=== PATIENT | male | born 2000 | race Hispanic/Latino ===

== ENCOUNTER 2019-12-04 17:26 | Emergency (ER) | payer OTHER ==
[~2019-12-04] VITALS: Ht 185.4 cm; Wt 91.0 kg
[2019-12-04 17:27] VITALS: BP 167/86
[2019-12-04] MEDS ORDERED: IBUP-1022 PO (17:33)
[2019-12-04] MEDS ORDERED: MAGIC MOUTHWASH SUSPENSION BTL SS STA (18:34)
[2019-12-04] MEDS ORDERED: IBUPROFEN 600 MG TAB PO ONE (18:45)
[2019-12-04] MEDS ORDERED: AMOXICILLIN 500 MG CAP PO ONE (18:45)
[2019-12-04] MEDS ORDERED: MAGICMW SSP (18:59)
[2019-12-04] MEDS ORDERED: AMOX500C PO (18:59)
== END 2019-12-04 19:06 | disposition home or self-care (01) ==
LOC: M ED 17:26
DX: B08.8 Other specified viral infections characterized by skin and mucous membrane lesions (principal); J02.0 Streptococcal pharyngitis; R05 Cough; Z72.0 Tobacco use

== ENCOUNTER 2019-12-06 09:46 | Inpatient (IN) | payer OTHER ==
[~2019-12-06] VITALS: Ht 185.4 cm; Wt 81.5 kg
[2019-12-06] VITALS (7 sets, daily range): BP systolic 141–144; BP diastolic 83–87; O2SAT 91–96
[~2019-12-06 09:46] MED LIST: AMOX500C PO; IBUP-1022 PO; MAGICMW SSP
[2019-12-06] MEDS ORDERED: ACETAMINOPHEN 325 MG TAB PO ONE (10:00)
[2019-12-06] MEDS ORDERED: dexameTHASONE 4 MG/ML 1ML VIAL (J1100) IV ONE (10:30)
[2019-12-06] MEDS ORDERED: NS 1,000 ML IV ONE (10:30)
[2019-12-06] MEDS ORDERED: ACETAMINOPHEN SUSP DYE FREE 160 MG/5 ML UDC PO ONE (10:30)
[2019-12-06 11:07] LABS: BASO # 0.1 10^3/uL (0.0-0.2); BASO % 0.3 % (0.0-1.0); EOS # 0.1 10^3/uL (0.0-0.5); EOS % 0.6 % (0.0-3.0); HEMATOCRIT 45.4 % (42.0-52.0); LYMPH # 1.1 10^3/uL (1.5-5.0); LYMPH % 7.9 % (24.0-44.0); MEAN CORPUSCULAR HEMOGLOBIN 27.7 pg (27.0-33.0); MEAN CORPUSCULAR VOLUME 83.9 fl (80.0-96.0); MONO # 1.7 10^3/uL (0.0-0.8); MONO % 12.1 % (0.0-5.0); NEUTROPHILS # 11.3 10^3/uL (1.5-8.5); NEUTROPHILS % 78.5 % (36.0-66.0); PLATELET COUNT, AUTOMATED 304 10^3/uL (150-450); RED BLOOD COUNT 5.41 10^6/uL (4.30-6.10); WHITE BLOOD COUNT 14.3 10^3/uL (4.0-10.0)
[2019-12-06 11:16] LABS: INFLUENZA A AMPLIFICATION NEGATIVE (NEGATIVE); INFLUENZA B AMPLIFICATION NEGATIVE (NEGATIVE)
--- NOTE | 2019-12-06 11:34 | REP ---
Portable chest x-ray: Single view. History: Cough. Findings: EKG electrodes and oxygen delivery tubing are seen. The lungs are well inflated and clear. The pleural angles are sharp. Heart size is normal. Pulmonary vasculature is not increased. No significant bony abnormality. Impression: No acute disease. Electronically Signed by Vlad Dumas MD 12/06/2019 11:25 A
[2019-12-06 11:49] LABS: INR 1.11
[2019-12-06 11:50] LABS: PARTIAL THROMBOPLASTIN TIME 37.8 SECONDS (25.0-38.4)
[2019-12-06 12:01] LABS: ERYTHROCYTE SEDIMENTATION RATE 58 mm/hr (0-15)
[2019-12-06] MEDS ORDERED: ISOVUE-370 76% 100ML VIAL (Q9967) As Ordered ONE (12:10)
[2019-12-06 12:15] LABS: MONO REFLEX EBV COMP NEGATIVE (NEGATIVE)
[2019-12-06 12:19] LABS: ALBUMIN 3.9 GM/DL (3.2-5.2); ALT/SGPT 27 U/L (12-78); BILIRUBIN,DIRECT 0.3 MG/DL (0.0-0.2); BILIRUBIN,TOTAL 0.7 MG/DL (0.2-1.0); TOTAL PROTEIN 8.2 GM/DL (6.4-8.2)
[2019-12-06 12:31] LABS: CK-MB VALUE MASS < 1.0 NG/ML (<3.6); CPK CREATINE PHOSPHOKINASE 217 U/L (39-308); MB/CK RELATIVE INDEX 0.46 (< OR =4); TROPONIN I < 0.02 NG/ML (< 0.10)
[2019-12-06] MEDS ORDERED: DOXYCYCLINE HYCLATE 100 MG in D5W MINI-BAG PLUS 100 ML IV ONE (13:00)
--- NOTE | 2019-12-06 13:01 | REP ---
INDICATION: Neck swelling, difficulty swallowing. PROCEDURE: CT neck with contrast COMPARISON STUDIES: No prior similar studies FINDINGS: Scattered cervical chain lymph nodes are seen without evidence of lymphadenopathy. Oropharynx, nasopharynx, hypopharynx and larynx appear unremarkable. No evidence of abscess or focal infection. The thyroid gland appears unremarkable. Paranasal sinuses are clear. Lung apices are clear. The vascular structures appear unremarkable. Cervical spinal alignment within normal limits without evidence of canal or foraminal stenosis. IMPRESSION: Unremarkable CT neck with contrast. Electronically Signed by Khari Winslow MD 12/06/2019 12:53 P
[2019-12-06 13:36] LABS: AMPHETAMINES LEVEL URINE NEGATIVE (NEGATIVE); BARBITURATES URINE NEGATIVE (NEGATIVE); BENZODIAZEPINES URINE NEGATIVE (NEGATIVE); CANNABINOIDS URINE NEGATIVE (NEGATIVE); COCAINE METABOLITE URINE NEGATIVE (NEGATIVE); METHADONE URINE NEGATIVE (NEGATIVE); OPIATES URINE NEGATIVE (NEGATIVE); PHENCYCLIDINE URINE NEGATIVE (NEGATIVE)
[2019-12-06] MEDS ORDERED: AMOX500C PO (13:43)
[2019-12-06] MEDS ORDERED: MAGICMW SSP (13:43)
--- NOTE | 2019-12-06 14:04 | REP ---
CT CHEST WITHOUT CONTRAST: HISTORY: Shortness of breath. History of vaping exposure with THC. No comparison CT study. Comparison is made with today's chest x-ray. CT FINDINGS: There is a pattern of mild to moderate bronchial wall thickening, consistent with bronchitis. There are subtle tree-in-bud densities in the left lower lobe, consistent with early inflammatory changes. There are similar densities in the anterior segment of the left upper lobe and the superior segment of the right lower lobe. No evidence of ground-glass opacities are seen. No coarse fibrotic changes or consolidated areas are seen. There is no evidence of pleural or pericardial effusion. No adrenal lesion is observed. Contrast opacification is seen in the kidneys bilaterally from previously performed CT study of the neck, which was done with IV contrast. No bony destructive lesion is seen. IMPRESSION: Bronchial wall thickening diffusely. Scattered areas of mild tree-in-bud type nodular lung changes, consistent with early inflammatory disease. There is no evidence of ground-glass opacity or areas of consolidation to suggest the usually described features of vaping associated lung injury. Findings may reflect bronchitis. Electronically Signed by Vlad Dumas MD 12/06/2019 04:41 P
[2019-12-06] MEDS ORDERED: PIPERACILLIN/TAZOBACTAM SOD 3.375 GM in D5W MINI-BAG PLUS 50 ML IV ONE (14:30)
[2019-12-06] MEDS ORDERED: VANCOMYCIN HCL 1,000 MG, VIAL MATE ADAPTER 1 EACH in D5W 250 ML IV ONE ×2 (14:30→16:00)
[2019-12-06 14:32] LABS: CHLAMYDIA DNA AMPLIFICATION NEGATIVE (NEGATIVE); GC DNA AMPLIFICATION NEGATIVE (NEGATIVE)
--- NOTE | 2019-12-06 14:57 | HPEPDOC ---
General Date of Admission Date of Service: Dec 06, 2019 Attending Physician: KEENAN DUDLEY MD Chief Complaint mouth soars, rash, productive cough Source: Patient Exam Limitations: No limitations History of Present Illness 19-year-old male no significant PMHx admitted presents with mouth soars, rash, productive cough. States symptoms started 1 week ago with productive cough with yellow sputum, associated with subjective fever and chills and shortness of breath. Denies chest pain/pressure, n/v/d, abdominal pain, urinary complaints, joint pain, headaches, vision changes. Noted increasing pain on swallowing Wednesday followed by blisters forming in the back of his throat and on his lips. Came to the ED on Wednesday evening for evaluation. Was found to be strep positive and tx with a dose of Amoxicillin and discharged home. Patient states he did not take anymore of the antibiotic as it was increasingly difficult for him to swal low. Symptoms worsened today, noted conjunctival hemorrhages with worsening of lip/throat blisters. Also with pustular rash forming across his torso and extremities. Presents to the ED with BP 162/85, P93, RR 19, saturating 93% on RA, Tm 102.3. Labs with wbc 14.3, ESR 58, CRP 24, LA 2.2, UA and urine toxicology negative, K 3.3, Na 132, SCr 1.5. CT chest with bronchial wall thickening diffusely, scattered areas of mild tree in bud type nodular lung changes. CT neck negative. Respiratory panel positive for Mycoplasma Pneumonia. Started on IV vanco/zosyn in ED, pancultures, IV steroids. Home Medications Scheduled Amoxicillin (Amoxicillin) 500 Mg Capsule, 500 MG PO TID, (Reported) patient states 4 doses taken out of 30 Ibuprofen (Ibuprofen) 600 Mg Tablet, 600 MG PO TID for pain, (Reported) with food Scheduled PRN Magic Mouthwash (First-Mouthwash Blm) 1 Ea Susp, 10 ML SSP QID PRN for MUCOSITIS, (Reported) (Diphenhydramine/maalox/lidocaine 1:1:1) May compound if kit unavailable/not covered by insurance Allergies Coded Allergies: No Known Allergies (Unverified , 12/04/19) Past Medical History Medical History none Surgical History tonsillectomy, adenoid removal. Family History Significant Family History: No pertinent family hx Social History * Smoker: Denies Alcohol: occationally (beer on weekends) Drugs: denies Recent Travel/Sick Contacts: Reports: Recent travel (drove to [place] over the holidays to be with family) A-FIB/CHADSVASC A-FIB History Current/History of A-Fib/PAF?: No Current PO Anticoag Therapy: No Review of Systems Constitutional: Reports: Weakness, Fatigue Eyes: Reports: Pain, Conjunctivae inflammation, Eyelid inflammation, Redness ENT: Reports: Dysphagia, Sore Throat Skin: Reports: Rash, Lesions, Itching Pulmonary: Reports: Dyspnea, Cough Genitourinary: Reports: Dysuria Physical Examination General Exam: Positive: Mild Distress Eye Exam: Positive: Other Eye Symptoms (conjunctival hemorrhages b/l, yellow discharge both eyes) ENT Exam: Positive: Other ENT (dry blisters noted on lips, erythema to pharynx) Chest Exam: Positive: Diminished Heart Exam: Positive: Rate Normal Skin Exam: Positive: Rash (purpuric rash spotty across torso, upper and lower extremities b/l) Vital Signs Vital Signs Date Time Temp Pulse Resp B/P (MAP) Pulse Ox O2 Delivery O2 Flow Rate FiO2 12/06/19 14:30 93 19 162/85 (110) 93 Nasal Cannula 3.0 12/06/19 12:13 100.4 Laboratory Data Labs 24H Laboratory Tests 2 12/06/19 10:03: Influenza Type A (RT-PCR) NEGATIVE, Influenza Type B (RT-PCR) NEGATIVE, Respiratory Syncytial Virus (RT-PCR NEGATIVE 12/06/19 10:37: Immature Granulocyte % (Auto) 0.6, Neutrophils (%) (Auto) 78.5H, Lymphocytes (%) (Auto) 7.9L, Monocytes (%) (Auto) 12.1H, Eosinophils (%) (Auto) 0.6, Basophils ( %) (Auto) 0.3, Neutrophils # (Auto) 11.3H, Lymphocytes # (Auto) 1.1L, Monocytes # (Auto) 1.7H, Eosinophils # (Auto) 0.1, Basophils # (Auto) 0.1, Nucleated Red Blood Cells % (auto) 0.0, Erythrocyte Sedimentation Rate 58H, Prothrombin Time 14.0, Prothromb Time International Ratio 1.11, Activated Partial Thromboplast Time 37.8, Lactic Acid Level 2.2*H, Total Bilirubin 0.7, Direct Bilirubin 0.3H, Aspartate Amino Transf (AST/SGOT) 27, Alanine Aminotransferase (ALT/SGPT) 27, Alkaline Phosphatase 74, Total Creatine Kinase 217, Creatine Kinase MB < 1.0, Creatine Kinase MB Relative Index 0.46, Troponin I < 0.02, C-Reactive Protein, Quantitative 23.90H, Total Protein 8.2, Albumin 3.9, Albumin/Globulin Ratio 0.91L, Syphilis Serology NONREACTIVE, Monoscreen NEGATIVE 12/06/19 11:04: POC Glucose (Misc Panel) 126H, POC Sodium (Misc Panel) 134L, POC Potassium (Misc Panel) 3.3L, POC Chloride (Misc Panel) 97L, POC Total CO2 (Misc Panel) 25.0, POC Blood Urea Nitrogen (Misc Panel 18, POC Ionized Calcium (Misc Panel) 4.5, POC Creatinine (Misc Panel) 1.5H, POC Hematocrit (Misc Panel) 45.0 12/06/19 12:31: Urine Color YELLOW, Urine Appearance HAZY, Urine pH 5.0, Urine Specific [place] 1.024, Urine Protein 1+H, Urine Glucose (UA) NEGATIVE, Urine Ketones TRACEH, Uri ne Blood 2+H, Urine Nitrite NEGATIVE, Urine Bilirubin NEGATIVE, Urine Urobilinogen 0.2, Urine Leukocyte Esterase NEGATIVE, Urine WBC (Auto) 16H, Urine RBC (Auto) 2, Urine Hyaline Casts (Auto) 0, Urine Bacteria (Auto) NEGATIVE, Urine Squamous Epithelial Cells 0, Urine Sperm (Auto) , Urine Opiates Screen NEGATIVE, Urine Methadone Screen NEGATIVE, Urine Barbiturates Screen NEGATIVE, Urine Phencyclidine Screen NEGATIVE, Urine Amphetamines Screen NEGATIVE, Urine Benzodiazepines Screen NEGATIVE, Urine Cocaine Metabolite Screen NEGATIVE, Urine Cannabinoids Screen NEGATIVE, Chlamydia trachomatis DNA (IZABELLA) NEGATIVE, Neisseria gonorrhoeae DNA (IZABELLA) NEGATIVE, Trichomonas vaginalis (PCR) NOT DETECTED CBC/BMP Laboratory Tests 12/06/19 10:37 Microbiology Microbiology 12/06/19 Urine Culture, Received Pending 12/06/19 Viral Culture, Received Pending 12/06/19 Respiratory Virus Panel (PCR) (HONEY) - Final, Complete Mycoplasma Pneumoniae 12/06/19 Blood Culture, Received Pending 12/06/19 Blood Culture, Received Pending Assessment/Plan 1. mucosal lesions of the mouth/conjunctival hemorrhage/rash - admit to medical floor. - respiratory panel positive for Mycoplasma Pneumonia. - strep positive on recent ED presentation, negative today per ED. - CT chest with diffuse bronchial wall thickening with scattered areas of mild tree in bud type inflammatory changes. - started on broad spectrum antibiotics, IV vanco/zosyn. - blood/urine/sputum cultures. - IV steroids. - consult placed to ID Dr. Richard. - of note, patient recently received vaccine for anthrax and typhoid. 2. leukocytosis with left shift - management as above, monitor. 3. YORDY - IVF NS, repeat SCr. - renal consult if worsens. 4. hypokalemia - supplement, repeat levels. Plan / VTE VTE Prophylaxis Ordered?: Yes KEENAN DUDLEY MD Dec 06, 2019 14:56
[2019-12-06] MEDS ORDERED: methylPREDNISolone INJ 125 MG/2 ML VIAL (J2930) IV ONE (15:15)
[2019-12-06] MEDS ORDERED: KCL 20MEQ in NS 1000ML 1,000 ML IV SCH (15:30)
[2019-12-06] MEDS ORDERED: VANCOMYCIN HCL 1,330 MG in IV FLUID PLACE HOLDER 1 EA IV SCH (15:30)
[2019-12-06] MEDS: NS 1,000 ML IV SCH (15:40)
[2019-12-06] MEDS: methylPREDNISolone INJ 125 MG/2 ML VIAL (J2930) IV SCH ×2 (15:47→23:05)
[2019-12-06] MEDS ORDERED: IPRATROPIUM 0.5MG/ALBUTEROL 2.5MG INH SOL UD 3ML (DUONEB)(J7620) NEB PRN (16:00)
--- NOTE | 2019-12-06 18:17 | ECGEPIP ---
[facility] - ED Test Date: 2019-12-06 Pat Name: DONALD MADDEN Department: Room: - Gender: Male Customer Sales Advisor: kacy : 2000 Requested By: TESS Puente PA-C Order Number: [id number] Reading MD: Stella Ni Measurements Intervals [place] Rate: 106 P: 12 CT: 152 QRS: 39 QRSD: 101 T: -64 QT: 318 QTc: 423 Interpretive Statements SINUS TACHYCARDIA MODERATE T-WAVE ABNORMALITY, CONSIDER ISCHEMIA CLINICAL CORRELATION NO PRIOR Electronically Signed on 12-06-2019 18:17:52 EST by Stella Ni
--- NOTE | 2019-12-06 18:42 | PHACANCOPD ---
PHARMACY VANCOMYCIN DOSING Pt Demographics Demographics Patient Age:19 , Weight:87.200 , Gender: male Adjusted Body Weight Date: 12/06/19, Adjusted Body Weight: Kg Events Past 24 Hours Events Past 24 Hours: YES: Fever, Elevation in WBC; NO: Dialysis, Diuretic Therapy, Change in CrCl, Pending Diagnostics, Pending Procedures, Other Vancomycin Vancomycin indication: Sepsis Vancomycin Target Ranges: 15-20 mcg/ml Vancomycin Load Y/N: Yes Load Dose Date Time Vancomycin Load Dose: 2000mg Date: 12/06/19 Time: ~1800 Vancomycin Dose Date: 12/06/19. Current Vancomycin Dose: [ 1 gram every 8 hours starting 12/07/19 @0200 ] Intermittent Dosing?: No Labs Labs Vital Signs Label Value Date Time Bedside Pulse Oximetry 94 % 12/06/19 1630 Bedside Pulse Oximetry 90 % 12/06/19 1706 Bedside Pulse Oximetry 92 % 12/06/19 1545 Pulse 91 12/06/19 1600 Patient Temperature 98.1 degrees F 12/06/19 1600 Temperature Source Temporal 12/06/19 1600 Item Value Date Time White Blood Count 14.3 10^3/uL H 12/06/19 1037 Erythrocyte Sedimentation Rate 58 mm/hr H 12/06/19 1037 Lactic Acid Level 2.2 MMOL/L *H 12/06/19 1037 Lactic Acid Followup at 4 Hours 1.3 MMOL/L 12/06/19 1537 C-Reactive Protein, Quantitative 23.90 MG/DL H 12/06/19 1037 POC Creatinine (Misc Panel) 1.5 MG/DL H 12/06/19 1104 Micro Microbiology 12/06/19 Gram Stain, Received Pending 12/06/19 Sputum Culture, Received Pending 12/06/19 Urine Culture, Received Pending 12/06/19 Viral Culture, Received Pending 12/06/19 Respiratory Virus Panel (PCR) (HONEY) - Final, Complete Mycoplasma Pneumoniae 12/06/19 Blood Culture, Received Pending 12/06/19 Blood Culture, Received Pending Creatinine Clearance Date:12/06/19. Creatinine Clearance: [ 88 mL/min ]. Assessment and Plan Maintaining Current Dose?: Yes Reason for dose change: No Dose Change Pharmacist Note Pharmacist Note Date: 12/06/19. Pharmacist note: Patient is a 19-year-old male who presented to [facility] after a previous emergency department visit where was diagnosed with a streptococcal infection of the throat and was discharged on amoxicillin. He presented back to the emergency department where he stated he did not continue his amoxicillin due to increased difficulty in swallowing and was found to have vesicles of the mouth. He was started on empiric antibiotic therapy consisting of Zosyn 3.375 grams Q6H and vancomycin. He has no previous history of vancomycin at our facility. Mr. Vogel has decent renal function currently and was scheduled a 2 gram loading dose with a subsequent maintenance dose of 1 gram Q8H starting tomorrow morning @0200. A trough was scheduled for 1700 tomorrow evening, prior to the fourth dose, to determine steady-state, with a goal trough of 15-20 mcg/dL. We will continue to monitor and make adjustments as needed. [facility] Dec 06, 2019 18:42
[2019-12-06] MEDS ORDERED: FLUID PLACE HOLDER IV SCH (19:30)
[2019-12-06] MEDS ORDERED: ACYCLOVIR IV SCH (19:30)
[2019-12-06] MEDS: KCL 10MEQ/100ML SWI (KRUN) X 2 DOSES (20MEQ TOTAL) IV SCH ×4 (20:15→21:30)
[2019-12-06] MEDS: NS IV SCH (20:30)
[2019-12-06] MEDS: MATE ADAPTER IV SCH (20:30)
[2019-12-06] MEDS: ACYCLOVIR IV SCH (20:30)
[2019-12-06] MEDS: ACETAMINOPHEN TAB 650MG DOSE (2X325MG) PO PRN (20:31)
--- NOTE | 2019-12-06 20:32 | ED PDOC ---
Post-Departure Follow-Up I was able to discuss the Case with Dr. Richard. Due to atypical coverage she recom mended doxycycline. I was able to touch base with the hospitalist Dr. Mcdonough and she was agreeable to place order and update Dr. Mahmood in the morning. TESS ALTMAN PA-C Dec 06, 2019 20:32
[2019-12-06] MEDS: ERYTHROMYCIN OPHTH OINT OU SCH (21:00)
[2019-12-06] MEDS ORDERED: KCL 10MEQ IN STERILE WATER 100ML As Ordered ONE (21:18)
[2019-12-06] MEDS: PIPERACILLIN/TAZOBACTAM SOD 3.375 GM in D5W MINI-BAG PLUS 50 ML IV SCH (21:40)
[2019-12-06] MEDS: DOXYCYCLINE HYCLATE 100 MG in D5W MINI-BAG PLUS 100 ML IV SCH (23:04)
[2019-12-07] VITALS (25 sets, daily range): BP systolic 128–139; BP diastolic 66–78; O2SAT 88–97
[2019-12-07] MEDS: NS 1,000 ML IV SCH ×2 (01:15→11:35)
[2019-12-07] MEDS: VANCOMYCIN HCL 1,000 MG, VIAL MATE ADAPTER 1 EACH in D5W 250 ML IV SCH ×2 (01:44→09:31)
[2019-12-07] MEDS ORDERED: VANCOMYCIN HCL 750 MG, VIAL MATE ADAPTER 1 EACH in D5W 250 ML IV SCH (02:00)
[2019-12-07] MEDS: PIPERACILLIN/TAZOBACTAM SOD 3.375 GM in D5W MINI-BAG PLUS 50 ML IV SCH ×3 (03:15→15:20)
[2019-12-07] MEDS: ACYCLOVIR IV SCH ×3 (04:18→20:06)
[2019-12-07] MEDS: NS IV SCH ×3 (04:18→20:06)
[2019-12-07] MEDS: MATE ADAPTER IV SCH ×3 (04:18→20:06)
[2019-12-07] MEDS: methylPREDNISolone INJ 125 MG/2 ML VIAL (J2930) IV SCH ×2 (06:48→15:19)
[2019-12-07 06:53] LABS: ALBUMIN 3.1 GM/DL (3.2-5.2); ALT/SGPT 20 U/L (12-78); BILIRUBIN,TOTAL 0.7 MG/DL (0.2-1.0); BLOOD UREA NITROGEN 15 MG/DL (7-18); CALCIUM LEVEL 8.8 MG/DL (8.5-10.1); CARBON DIOXIDE LEVEL 26 MEQ/L (21-32); CHLORIDE LEVEL 103 MEQ/L (98-107); CREATININE FOR GFR 1.03 MG/DL (0.70-1.30); GLOMERULAR FILTRATION RATE > 60.0 (>60); GLUCOSE, FASTING 154 MG/DL (70-100); POTASSIUM SERUM 3.5 MEQ/L (3.5-5.1); SODIUM LEVEL 137 MEQ/L (136-145); TOTAL PROTEIN 7.5 GM/DL (6.4-8.2)
[2019-12-07] MEDS: ERYTHROMYCIN OPHTH OINT OU SCH (08:09)
--- NOTE | 2019-12-07 09:59 | IPNPDOC ---
Subjective Date Seen The patient was seen on 12/07/19. Subjective Chief Complaint/HPI Patient seen and examined at bedside, wants to take a shower, c/o productive cough, mild shortness of breath, dysphagia. Eyes: Reports: Conjunctivae inflammation, Redness ENT: Reports: Sinus Congestion, Sore Throat Skin: Reports: Rash Pulmonary: Reports: Cough Objective Physical Examination General Exam: Positive: Mild Distress Eye Exam: Positive: Other Eye Symptoms (conjunctival hemorrhages b/l, yellow discharge both eyes) ENT Exam: Positive: Other ENT (dry blisters noted on lips, erythema to pharynx) Chest Exam: Positive: Diminished Heart Exam: Positive: Rate Normal Skin Exam: Positive: Rash (purpuric rash spotty across torso, upper and lower extremities b/l) Assessment /Plan Assessment 1. Mycoplasma pneumonia with diffuse rash/mucosal involvment. - respiratory panel positive for Mycoplasma Pneumonia. - STD panel negative, EBV/HSV/rubella/rubeola pending. - CT chest with diffuse bronchial wall thickening with scattered areas of mild tree in bud type inflammatory changes. - seen by ID, dermatology. - blood/urine cx NG, sputum gram stain white cells, few gram-positive cocci, few gram-positive rods, pending cx. - droplet/contact precautions. - consult placed to opthalmology. 2. hypoxia - secondary to #1. - currently on 10L, sats in low 90's. - consult placed to pulmonary Dr. De La Rosa. 3. YORDY - resolved. - IVF NS, monitor. 4. hypokalemia - resolved, monitor. Plan/VTE VTE Prophylaxis Ordered?: Yes VS, I&O, 24H, Fishbone Vital Signs/I&O Vital Signs Date Time Temp Pulse Resp B/P (MAP) Pulse Ox O2 Delivery O2 Flow Rate FiO2 12/07/19 07:36 98.8 90 22 130/73 (92) 93 Nasal Cannula 12/07/19 05:00 6.0 12/06/19 16:30 50 I&O- Last 24 Hours up to 6 AM 12/07/19 06:00 Intake Total 2275 ml Output Total 1875 ml Balance 400 ml Laboratory Data 24H LABS Laboratory Tests 2 12/06/19 10:03: Influenza Type A (RT-PCR) NEGATIVE, Influenza Type B (RT-PCR) NEGATIVE, Respiratory Syncytial Virus (RT-PCR NEGATIVE 12/06/19 10:37: Immature Granulocyte % (Auto) 0.6, Neutrophils (%) (Auto) 78.5H, Lymphocytes (%) (Auto) 7.9L, Monocytes (%) (Auto) 12.1H, Eosinophils (%) (Auto) 0.6, Basophils (%) (Auto) 0.3, Neutrophils # (Auto) 11.3H, Lymphocytes # (Auto) 1.1L, Monocytes # (Auto) 1.7H, Eosinophils # (Auto) 0.1, Basophils # (Auto) 0.1, Nucleated Red Blood Cells % (auto) 0.0, Erythrocyte Sedimentation Rate 58H, Prothrombin Time 14.0, Prothromb Time International Ratio 1.11, Activated Partial Thromboplast Time 37.8, Lactic Acid Level 2.2*H, Total Bilirubin 0.7, Direct Bilirubin 0.3H, Aspartate Amino Transf (AST/SGOT) 27, Alanine Aminotransferase (ALT/SGPT) 27, Alkaline Phosphatase 74, Total Creatine Kinase 217, Creatine Kinase MB < 1.0, Creatine Kinase MB Relative Index 0.46, Troponin I < 0.02, C-Reactive Protein, Quantitative 23.90H, Total Protein 8.2, Albumin 3.9, Albumin/Globulin Ratio 0.91L, Syphilis Serology NONREACTIVE, Monoscreen NEGATIVE 12/06/19 11:04: POC Glucose (Misc Panel) 126H, POC Sodium (Misc Panel) 134L, POC Potassium (Misc Panel) 3.3L, POC Chloride (Misc Panel) 97L, POC Total CO2 (Misc Panel) 25.0, POC Blood Urea Nitrogen (Misc Panel 18, POC Ionized Calcium (Misc Panel) 4.5, POC Creatinine (Misc Panel) 1.5H, POC Hematocrit (Misc Panel) 45.0 12/06/19 12:31: Urine Color YELLOW, Urine Appearance HAZY, Urine pH 5.0, Urine Specific [place] 1.024, Urine Protein 1+H, Urine Glucose (UA) NEGATIVE, Urine Ketones TRACEH, Urine Blood 2+H, Urine Nitrite NEGATIVE, Urine Bilirubin NEGATIVE, Urine Urobilinogen 0.2, Urine Leukocyte Esterase NEGATIVE, Urine WBC (Auto) 16H, Urine RBC (Auto) 2, Urine Hyaline Casts (Auto) 0, Urine Bacteria (Auto) NEGATIVE, Urine Squamous Epithelial Cells 0, Urine Sperm (Auto) , Urine Opiates Screen NEGATIVE, Urine Methadone Screen NEGATIVE, Urine Barbiturates Screen NEGATIVE, Urine Phencyclidine Screen NEGATIVE, Urine Amphetamines Screen NEGATIVE, Urine Benzodiazepines Screen NEGATIVE, Urine Cocaine Metabolite Screen NEGATIVE, Urine Cannabinoids Screen NEGATIVE, Chlamydia trachomatis DNA (IZABELLA) NEGATIVE, Neisseria gonorrhoeae DNA (IZABELLA) NEGATIVE, Trichomonas vaginalis (PCR) NOT DETECTED 12/06/19 15:37: Lactic Acid Followup at 4 Hours 1.3 12/07/19 05:52: Anion Gap 8, Glomerular Filtration Rate > 60.0, Calcium Level 8.8, Total Bilirubin 0.7, Aspartate Amino Transf (AST/SGOT) 18, Alanine Aminotransferase (ALT/SGPT) 20, Alkaline Phosphatase 59, Total Protein 7.5, Albumin 3.1#L, Albumin/Globulin Ratio 0.70L CBC/BMP Laboratory Tests 12/06/19 10:37 12/07/19 05:52 Microbiology Microbiology 12/06/19 Gram Stain, Received Pending 12/06/19 Sputum Culture, Received Pending 12/06/19 Urine Culture - Final, Complete 12/06/19 Viral Culture, Received Pending 12/06/19 Respiratory Virus Panel (PCR) (HONEY) - Final, Complete Mycoplasma Pneumoniae 12/06/19 Blood Culture, Received Pending 12/06/19 Blood Culture, Received Pending KEENAN DUDLEY MD Dec 07, 2019 09:59
[2019-12-07 10:24] LABS: HEMATOCRIT 40.6 % (42.0-52.0); HEMOGLOBIN 13.5 g/dl (13.5-17.5); MEAN CORPUSCULAR HEMOGLOBIN 27.8 pg (27.0-33.0); MEAN CORPUSCULAR HGB CONC 33.3 g/dl (32.0-36.5); MEAN CORPUSCULAR VOLUME 83.5 fl (80.0-96.0); PLATELET COUNT, AUTOMATED 303 10^3/uL (150-450); RED BLOOD COUNT 4.86 10^6/uL (4.30-6.10); WHITE BLOOD COUNT 11.8 10^3/uL (4.0-10.0)
[2019-12-07] MEDS: DOXYCYCLINE HYCLATE 100 MG in D5W MINI-BAG PLUS 100 ML IV SCH (11:35)
[2019-12-07] MEDS: MAGIC MOUTHWASH SUSPENSION BTL SS PRN ×2 (11:35→22:22)
[2019-12-07] MEDS ORDERED: LORazepam 2 MG/ML VIAL (J2060) IV STA (11:55)
[2019-12-07] MEDS: KETOROLAC 30 MG/ML VIAL (J1885) IV PRN (12:11)
[2019-12-07] MEDS ORDERED: diphenhydrAMINE INJ 50MG/ML VIAL (J1200) IV PRN (14:00)
[2019-12-07] MEDS ORDERED: diphenhydrAMINE CREAM 30GM TOP PRN (19:45)
[2019-12-07] MEDS ORDERED: LIDOCAINE 2% JELLY 30 ML TOP PRN (20:45)
[2019-12-07] MEDS: POLYVINYL ALCOHOL OPHTH SOLN 15 ML(LIQUITEARS) OU SCH (22:15)
[2019-12-07] MEDS: AZITHROMYCIN INJ 500 MG, VIAL MATE ADAPTER 1 EACH in D5W 250 ML IV SCH (22:15)
--- NOTE | 2019-12-07 22:58 | CR ---
DATE OF CONSULTATION: 12/07/2019 REQUESTING PROVIDER: Dr. Leah Richard REASON FOR CONSULTATION: Rash. 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 He presented to the emergency department yesterday complaining of a sore throat, shortness of breath, chest congestion, drainage and redness to both eyes, dysuria and white spots on his skin. The patient states that he recently returned from the [facility] where he was for the last 2 weeks of October, visiting family for the holidays. He states that everybody in his family was sick. He was in the [facility] [place] of [place]. He says that around 11/29/2019 or 11/30/2019, he started feeling ill with a cough, which was productive of sputum that was yellow in color. He said his cough was associated with aching chest pain that was located substernally. He drove back to [place] on Wednesday and Wednesday, 12/01/2019 and 12/02/2019, passing through the [facility] and [place] into [place]. He noted a sore throat Wednesday evening and Wednesday morning he awoke with the feeling of blisters forming in the back of his mouth/throat and blisters on his lips with significant pain on swallowing. He says he hasn't eaten since Wednesday. He presented to the emergency department at [facility] on Wednesday, was diagnosed with strep, and given amoxicillin. He only used this for a day, then self- discontinued because his symptoms did not improve. His difficulty swallowing became progressively worse, and on the morning of 12/05/2019 he woke up and noted that his eyes were red bilaterally. Wednesday morning he noticed a rash on his left foot, which spread to his other extremities, and worked its way onto his abdomen, torso and back, in centripetal fashion. He says the rash developed bumps and blisters that were itchy and easily sloughed off when he scratched them, leaving red circular areas that looked like targets on his skin. The targetoid lesions itch a little, but do not burn or have any pain associated with them. The only real pain he has is in his mouth, where he noticed white blisters on the roof of his mouth, especially in the back towards the uvula. He also admits to wheezing and feeling like he cannot breathe. He finds it difficult to breathe when he lays on his back, but he is able to sleep on his side (he has a side sleeper anyway). Due to his worsening symptoms, he presented back to the emergency department on December 06, 2019, where he was noted to have a fever of 102.3 and was saturating 92% on room air. He was subsequently admitted tot [facility]. He also states that he did recently receive anthrax and typhoid vaccinations, but does not remember exactly when these were given. He thinks it was about a month ago, before his trip to [place]. PAST MEDICAL HISTORY: None. PAST SURGICAL HISTORY: Tonsillectomy and adenoidectomy. INPATIENT MEDICATIONS: - Benadryl 12.5 mg every 6 hours as needed IV for itching - Toradol 15 mg every 6 hours IV as needed for pain - magic mouthwash 5 mL every 4 hours as needed, swish and spit - doxycycline 100 mg every 12 hours IV - erythromycin ointment one dose each eye twice a day - acyclovir 500 mg every 8 hours IV - Tylenol 650 mg every 6 hours as needed by mouth for fever or pain - DuoNebs every 4 hours as needed for shortness of breath or wheezing - Solu-Medrol 60 mg every 8 hours IV The patient has also been given vancomycin and Zosyn. The patient does not take any medications at home. ALLERGIES: None. FAMILY HISTORY: The patient does not know if any of his family members have any medical illnesses. SOCIAL HISTORY: Recently drove to [place] through the [facility] of [place], [place] and [place]. Has also recently visited [place]. He does chew tobacco but denies cigarette usage. He does consume about a 12-pack of beer on weekends. He states that while he was visiting his family, everyone in the house was sick. He denies recreational drug use except for the first day he was home when he did use marijuana. REVIEW OF SYSTEMS: Constitutional: Positive for weight loss, though he is unsure how much due to not being able to eat. Positive also for fevers and chills, as well as malaise and fatigue. Eyes: Negative for vision changes, but positive for his eyes bleeding with some yellowish discharge. Negative for floaters, eye pain or feeling like a curtain got pulled down over his vision. Ear, Nose, Throat: Negative for epistaxis, tinnitus, sinus pain or runny nose. Positive for oral ulcerations, blisters on the roof of his mouth, and odynophagia with sore throat. Cardiovascular: Denies any chest pain, shortness of breath, paroxysmal nocturnal dyspnea, edema, palpitations or claudication. Positive for some orthopnea, but he is able to lay on his side to sleep. Respiratory: Positive for productive cough with green sputum as well as wheezes and difficulty breathing. Negative for hemoptysis. Gastrointestinal: Negative for abdominal pain, cramping, nausea, vomiting, constipation, obstipation, hematemesis, hematochezia, melena or tenesmus. Does endorse diarrhea, difficulty swallowing and decreased appetite. Genitourinary: Positive for dysuria (burning with urination). Denies hematuria, nocturia, polyuria, hesitancy or dribbling. Musculoskeletal: Negative for pain, stiffness or joint swelling. Negative for range of motion or crepitus. Integumentary: Positive for rash as described above, as well as cracking and ulceration of his lips. Neurologic: Denies any changes to sight/smell/hearing/taste, seizures, headaches, paresthesias, anesthesias. Psychiatric: Negative for history of depression or anxiety, paranoia, anhedonia, or episodes of lilian. Endocrine: Denies mood swings, sweats, palpitations, tremors, constipation, dry skin polydipsia, polyphagia. Hematologic: Positive for bleeding in his eyes, denies easy bruising or bleeding. Lymphatic: Denies any new lumps or bumps anywhere. PHYSICAL EXAMINATION: Vital signs: Temperature 98.0, pulse 88 and regular, respiratory rate 20 and unlabored, blood pressure 135/78, pulse oximetry is 92% on 10 liters via nasal cannula. General: This is a tired and ill-appearing young male who is in no acute distress, lying in bed in the progressive care unit (PCU). HEENT: Atraumatic, normocephalic. Subconjunctival hemorrhages noted bilaterally with injection of the lower lids bilaterally. Ulcerations are noted on the patient's lips. There are ulcerations on the roof of his mouth, as well as the buccal mucosa. His tongue is white without ulcerations. Some gingivitis is noted. Neck: Supple, no masses. Trachea is midline. No cervical, submandibular or supraclavicular lymphadenopathy is appreciated. Lungs: Mild accessory muscle use (scalene) without retractions. Diffuse wet breath sounds with inspiratory crackles bilaterally, as well as a wet-sounding cough with minimal transmitted upper airway sounds. No e-to-a egophony is present. There is no dullness to percussion or signs of consolidation. Heart: Regular rate and rhythm. No murmurs, gallops or rubs. Abdomen: Soft, nontender, nondistended. Normoactive bowel sounds. No organomegaly appreciated. Extremities: No clubbing, cyanosis or edema. Back: No costovertebral tenderness bilaterally. Skin: Diffuse 6 mm to 15 mm circular targetoid lesions with central vesiculations and ulcerations covering his face, neck, arms, legs, chest, back, abdomen, buttocks, scrotum, anal mucosa, and penis with a targetoid lesion and ulceration on the urethral meatus. There are also some 4-6 mm vesicles with erythematous bases along the jaw, just inferior to the mouth on the left. Negative Nikolsky's sign, no diffuse erythema or erythroderma present. No scaling or sloughing of the skin noted. LABORATORY DATA: CBC: WBC 11.8, hemoglobin 13.5, hematocrit 40.6, platelets 303. CBC from admission shows a differential of 79% neutrophils, 8% lymphocytes and 12% monocytes with an erythrocyte sedimentation rate of 58. Chemistry: Sodium 137, potassium 3.5, chloride 103, carbon dioxide 26, BUN 15, creatinine 1.05, fasting glucose 154, calcium 8.8, total bilirubin 0.7, AST 18, ALT 20, alkaline phosphatase 59, total protein 7.5, albumin 3.1. Lactic acid from admission was 2.2, which responded to fluids, followup was 1.3. CRP on admission was 23.9. Toxicology panel was negative for opioids, barbiturates, amphetamines, benzodiazepines, cocaine or cannabinoids. Coagulation studies showed a PT of 14.0, INR of 1.11 and an APTT of 37.8. Urinalysis from admission showed urine that was yellow and hazy in appearance with a pH of 5.0 and a specific gravity of 1.024. Positive for 1+ protein, trace ketones, 2+ blood and 16 urine WBCs. Serology: Syphilis is nonreactive, chlamydia trachomatis is negative. [place] screen was negative. Neisseria gonorrhoeae was negative. Trichomonas vaginalis was negative. Rhonda-Guillen is pending. HSV 1 and 2 are pending and HIV screen is pending. Microbiology: Blood cultures times two from 12/06/2019 showed no growth after 24 hours. Respiratory virus panel from 12/06/2019 was positive for Mycoplasma pneumoniae. Viral culture is pending. HSV 1 and 2 are pending. Urine culture is negative. Sputum Gram stain showed few gram-positive rods and few gram-positive cocci in chains, culture is pending. IMAGING: Chest x-ray from 12/06/2019 shows no acute disease. Neck CT from 12/06/[address] from 12/06/2019 showed bronchial wall thickening diffusely with scattered areas of mild tree-in-bud type nodular lung changes consistent with early inflammatory disease. No evidence of ground-glass opacity or areas of consolidation. Electrocardiogram done in the emergency department showed sinus tachycardia at 106 beats per minute. Normal axis. Nonspecific T-wave changes. No priors for comparison. 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 with a positive Mycoplasma pneumoniae on his respiratory virus panel. He is hospital day #2, antibiotics day #2, steroids day #2. PLAN: 1. Rash. Favor Mycoplasma-induced rash and mucositis (classical presentation with positive Mycoplasma pneumoniae on respiratory virus panel). Would recommend adding IV azithromycin, especially as he is only saturating 92% on 10 liters via nasal cannula. May consider PAP therapy if his oxygenation does not improve. Differential diagnosis (not favored) Veloz-Lexx syndrome and toxic epidermal necrolysis (SCORTEN score 1, not likely), erythema multiforme major, bullous pemphigus, bullous pemphigoid, disseminated herpes simplex virus (HSV) or varicella-zoster virus (VZV), less likely measles or rubella (though there has recently been a measles outbreak in [place], so rubella and rubeola titers have been ordered). Also on the differential but less likely would be a vaccine reaction to anthrax or typhoid vaccines (his rash would more likely resemble reaction to smallpox, which he does not believe he has had recently). We would recommend an ophthalmology consult for his subconjunctival hemorrhages. The patient is refusing the erythromycin ointment, so that has been discontinued as well in favor of Refresh artificial tears for lubrication. As Veloz-Lexx's toxic epidermal necrolysis is unlikely given the low SCORTEN score and absence of Nikolsky's sign, I have discontinued Solu-Medrol. Will also add IV azithromycin for its efficacy against Mycoplasma pneumoniae in conjunction with doxycycline. His dysuria is most likely urethritis from ulceration of the meatus of the urethra, he also does have mucositis of his anal mucosa, so we have added lidocaine 2% jelly to be used as needed for pain at these areas. Would also recommend using petroleum jelly for lubrication in areas that are dry, especially his lips as they are cracked and ulcerated. Agree with magic mouthwash in order to decrease the pain in his mouth and with swallowing. We appreciate your consultation, and we will follow him along with you while he is inpatient. My faculty preceptor for this patient encounter was physically present during the encounter and was fully available. All aspects of the patient interview, examination, medical decision making process, and medical care plan development were reviewed and improved by the faculty preceptor. The faculty preceptor is aware and concurs with the plan as stated in the body of this note and will attest to such by his cosignature NICK
--- NOTE | 2019-12-07 23:48 | CR ---
DATE OF CONSULTATION: 12/07/2019 INFECTIOUS DISEASE CONSULTATION Asked to consult by Dr. Chan Mahmood for evaluation of Mycoplasma pneumoniae with severe mucositis and rash. 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 The patient developed on 11/30/2019 a cough productive of yellow sputum associated with chest pain, fever and chills. The patient was seen in the emergency room for evaluation of cough and a sore throat, was diagnosed with group A strep and was given amoxicillin. He took that for one day but then he developed a rash, target lesions that were pruritic.He also had chest pain, pressure and worsening shortness of breath and therefore, he came back to the emergency room. He then developed conjunctival lesions with hemorrhage and mucosal lesions, difficulty with hoarseness. His lips started to crack. He had blisters all over his mouth. The rash was itchy. Amoxicillin was discontinued. He was switched to IV Zosyn, vancomycin, doxycycline. Respiratory panel was positive for Mycoplasma. Because of the concern with the oral lesion and ulcers, he also had IV acyclovir added. The rash was involving his eyes, lips, urethra, and back, abdomen, lower extremities, groin. He was also extremely hypoxic and has been on oxygen at 10 liters. This afternoon, the patient feels somewhat better. He is asking to shower. PAST MEDICAL HISTORY: His of methicillin-resistant Staphylococcus aureus (MRSA) abscess of the cheek. PAST SURGICAL HISTORY: Tonsillectomy, adenoidectomy. SOCIAL HISTORY: He is not . He has a girlfriend who lives in [facility]. He has been in the for a year. He has a girlfriend who he has not seen for over a month. She had been on vacation. He had been in [place] where his family lives but nobody has been sick with Mycoplasma. He drinks socially and does not smoke. FAMILY HISTORY: Not relevant. REVIEW OF SYSTEMS: He complains of fatigue, weakness. He has blurry vision, conjunctival erythema and inflammation. He is having difficulty swallowing pills with sore throat. No ear pain, discharge. He complains of cough productive of yellow phlegm, shortness of breath but no chest pain. He also has dysuria with penile ulcer. He denies any flank pain. PHYSICAL EXAM: He is a sick looking young man in moderate discomfort. He is coughing with significant secretions and suctioning his own secretions. Vital signs: Temperature was 102.3 yesterday. Today he has been afebrile. Temperature is 99.3, pulse 103, respirations 20, blood pressure 134/67, oxygen saturation 95-98% on 10 liters nasal cannula. Neck is supple. No jugular venous distention (JVD). No bruits. No adenopathy. Heart: Normal, S1, S2, tachycardiac. No murmurs appreciated. Lungs: Diffuse expiratory rhonchi bilaterally and diminished breath sounds. Abdomen: Soft, nontender. No hepatosplenomegaly. Back: No costovertebral angle or lumbosacral tenderness. Extremities: No clubbing, cyanosis or edema. Skin: Diffuse erythematous targetoid lesions on back, chest, abdomen, mons pubis has smaller lesions measuring less than 1 cm. Urethra is erythematous and has a small ulceration on the tip. Oropharynx has multiple blisters on lips significant mucositis with whitish discoloration of the palate, cracked lips. Conjunctive erythematous with hemorrhagic bullae. Forehead has some 1 cm lesions as well. He has a negative Nikolsky sign. MEDICATIONS: - vancomycin 1.75 grams IV every 8 hours - Benadryl 12.5 mg IV every 6 hours - artificial tears - Zosyn 3.375 grams IV every 6 hours - doxycycline 100 mg IV every 12 hours - acyclovir 500 mg IV every 8 hours - albuterol/Atrovent nebs - Solu-Medrol 60 mg IV ever 8 hours LABORATORY DATA: White count yesterday was 14.3, today it was 11.8, hemoglobin 13.5, hematocrit 40.6, platelets 303, ESR 58. Sodium 137, potassium 3.5, chloride 103, bicarbonate 26, BUN 15, creatinine 1.03, glucose 154. Lactic acid on admission was 2.2, followup at 4 hours was 1.3. Calcium 8.8, AST 18, ALT 20, alkaline phosphatase 59, total protein 7.5, albumin 3.1. Syphilis serology negative. Chlamydia, Gonorrhea and Trichomonas all negative. [place] screen was negative. EBV serology is pending. HIV was added by myself. Urine drug screen was negative for all drugs, and urinalysis had 16 white cells, 2 red cells. IMAGING STUDIES: CT chest showed bronchial wall thickening, diffusely scattered areas of mild tree-in-bud type nodular changes, consistent with early inflammatory disease. No ground-glass opacity or consolidation. Neck CT was unremarkable. Thyroid gland is negative. There is no evidence of abscess or focal infection. Chest x-ray shows no significant abnormalities. Blood cultures, two sets, done on 12/06/2019 were negative. Nasopharyngeal respiratory panel was positive for Mycoplasma pneumoniae PCR. Urine culture was negative. Sputum Gram stain had many white cells, few gram-positive cocci, few gram-positive rods. Culture is pending. IMPRESSION: This is a 19-year-old gentleman who was previously healthy, admitted with Mycoplasma pneumoniae, severe hypoxia requiring 10 liters oxygen, who has developed a severe mucositis and diffuse rash that looks like erythema multiforme. I have consulted dermatology and Dr. Henry does not feel the patient has Veloz-Lexx, he has a negative Nikolsky sign. The patient could have this rash from just Mycoplasma mucositis and skin rash, less likely patient has developed amoxicillin allergy as it happened one day after he started amoxicillin. The symptoms of urethritis, anal discomfort, mucous lesion involvement including eye and mouth are typical of Mycoplasma. There is no clinical evidence of herpes. The patient is not at risk of HIV. PLAN: 1. Continue IV doxycycline 100 mg every 12 hours. This is appropriate atypical coverage for Mycoplasma. He has a previous history of MRSA, but this is definitely not MRSA pneumonia. 2. Discontinue IV acyclovir. 3. Discontinue IV Zosyn. The patient developed a rash on amoxicillin. I would not use penicillin at this time. 4. Consult dermatology who already has seen the patient. I have ordered the consult. Discontinue IV steroids. 5.Artificial tears for his eyes. 6. HIV testing. 7. The patient does not need airborne isolation, only droplet isolation, and since he has a previous history of MRSA, he needs contact isolation. NICK
--- NOTE | 2019-12-07 23:56 | ECHO ---
DATE OF PROCEDURE: 12/07/2019 REFERRING PHYSICIAN: Dr. Chan Mahmood INDICATION: Shortness of breath. HEIGHT: 185 cm WEIGHT: 89 kg 2D MEASUREMENTS: Ventricular septum: 0.92 cm Posterior wall: 0.97 cm Left ventricle diastole: 5.1 cm Aortic root: 2.9 cm Left atrium: 3.2 cm LVOT: 2.2 cm Inferior vena cava: 1.8 cm (more than 50% respiratory variation). DOPPLER MEASUREMENTS: Aortic valve velocity: 160 cm/s LVOT velocity: 109 cm/s No aortic regurgitation. Trace mitral regurgitation. Very mild tricuspid regurgitation. Very mild pulmonic regurgitation. Mitral E velocity: 84.0 cm/s Mitral A velocity: 64.7 cm/s Mitral deceleration time: 208 ms Pulmonary acceleration time: 134 ms MITRAL ANNULAR TISSUE DOPPLER: E prime septal: 10.7 cm/s E prime lateral: 10.4 cm/s DESCRIPTION: Rhythm was sinus. Image quality was good. No pericardial effusion. This was a 2D, M-mode, color flow Doppler and pulse wave Doppler examination and included mitral annular tissue Doppler. CONCLUSIONS: 1. Normal left ventricle internal dimensions and wall thickness. Normal regional left ventricular (LV) wall motion and wall thickening. Normal LV systolic function. Left ventricular ejection fraction (LVEF) 60% by visual estimate. Normal LV diastolic function. 2. Suggestive of normal pulmonary artery systolic pressure. 3. Normal echocardiogram Doppler.
[2019-12-08] VITALS (23 sets, daily range): BP systolic 129–167; BP diastolic 60–79; O2SAT 91–98
[2019-12-08 00:07] LABS: EBV AB TO NUCLEAR ANTIGEN 69.5 U/mL (0.0-17.9)
[2019-12-08] MEDS: NS 1,000 ML IV SCH ×4 (00:15→21:36)
[2019-12-08] MEDS: DOXYCYCLINE HYCLATE 100 MG in D5W MINI-BAG PLUS 100 ML IV SCH ×3 (00:16→23:36)
[2019-12-08] MEDS ORDERED: RAMELTEON 8 MG TAB (ROZEREM) PO ONE (01:45)
[2019-12-08] MEDS: MAGIC MOUTHWASH SUSPENSION BTL SS PRN (07:49)
[2019-12-08] MEDS: POLYVINYL ALCOHOL OPHTH SOLN 15 ML(LIQUITEARS) OU SCH ×4 (07:49→20:34)
[2019-12-08 10:15] LABS: ABG BASE EXCESS -1.3 (-2.0-2.0); ABG HCO3 21.6 MEQ/L (22.0-26.0); ABG O2 SATURATION 98.3 % (95.0-99.0); ABG PARTIAL PRESSURE CO2 30.8 mmHg (35.0-45.0); ABG PARTIAL PRESSURE O2 117.5 mmHg (75.0-100.0); ABG STANDARD HCO3 23.4 MEQ/L (22.0-26.0); ABG TOTAL CO2 22.5 MEQ/L (22.0-29.0); ABG pH (ARTERIAL) 7.463 UNITS (7.350-7.450)
[2019-12-08] MEDS: methylPREDNISolone INJ 125 MG/2 ML VIAL (J2930) IV SCH (12:06)
[2019-12-08] MEDS ORDERED: ISOVUE-370 76% 100ML VIAL (Q9967) As Ordered ONE (12:50)
--- NOTE | 2019-12-08 14:15 | REP ---
CT PULMONARY ANGIOGRAM: With IV contrast. HISTORY: Worsening hypoxia. COMPARISON STUDIES: Comparison noncontrast chest CT study November 2019 CONTRAST DOSE: 75 mL of Isovue [address] TECHNIQUE: Helical scanning is acquired and overlapping 1.5 mm and contiguous 3 mm axial images are reformatted. In addition, maximum intensity projection and multiplanar re-formation images are generated in sagittal and coronal imaging projections. CT PULMONARY ANGIOGRAPHIC FINDINGS: Preliminary lip and gate builder view is unremarkable. Today's CT images demonstrate new lobar atelectasis in the right middle lobe. In addition, a patchy pattern of ground-glass opacities has developed in the lower lobes bilaterally. Mild bronchial thickening or cuffing is again seen. The tree-in-bud pattern noted on December 06, 2019 study persists in the left lower lobe essentially unchanged. No hilar or mediastinal mass or adenopathy is observed. No pleural or pericardial effusion is seen. There is good opacification of the pulmonary arterial tree and the thoracic aorta. There is no evidence of pulmonary embolus, aneurysm, or dissection. No bony lesion is appreciated. Exam is otherwise unremarkable. IMPRESSION: 1. No CT evidence of pulmonary embolus. 2. Interval development of lobar collapse right middle lobe. 3. Scattered mild pattern of ground-glass opacities in the lower lobes bilaterally. Previously noted tree-in-bud changes and bronchial wall thickening are again seen. Electronically Signed by Vlad Dumas MD 12/09/2019 05:17 A
--- NOTE | 2019-12-08 14:39 | CR ---
DATE OF CONSULTATION: 12/08/2019 DATE OF ADMISSION: 12/06/2019 CONSULTING PHYSICIAN: Dr. Chan Mahmood REASON FOR CONSULTATION: Hypoxemia and Mycoplasma pneumoniae. HISTORY OF PRESENT ILLNESS: This is a 19-year-old male with no real significant past medical history who was admitted initially on December 06 for worsening mouth sores, sore throat, productive cough and shortness of breath. 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 He noticed earlier this week he had a dry cough and at the same time he started noticing blisters forming in his throat and his lips. He was evaluated in the ER on Wednesday evening and was found to be strep positive and was prescribed amoxicillin prior to being discharged home. He noticed 24 hours later he was unable to swallow the antibiotics and his cough became worse. He states the cough became pink in nature and more productive as the day progressed. He also noticed that his lip blisters and throat blisters were getting worse and started to notice a raised rash on his lower extremities. When he went to the ER on Wednesday he had a blood pressure of 162/85 with a pulse of 93 with respirations of 19 and was satting 93% on room air. He did have a T-max of 102.3 in the ER and denies having any fevers prior to admission. His labs showed a leukocytosis of 14.3 with an elevated ESR of 58 and a CRP of 24. Lactic acid was elevated at 2.2 with a negative urine toxicology. He had a CT of the chest that showed moderate bronchial wall thickening consistent with bronchitis and subtle tree-in-bud densities in the left lower lobe consistent with early inflammatory changes, and there are similar densities in the anterior segment of the left upper lobe and the superior segment of the right lower lobe. There was no evidence of ground glass opacities seen. 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 PAST SURGICAL HISTORY: Tonsillectomy and adenoidectomy. ALLERGIES: No known drug allergies. FAMILY HISTORY: Reviewed and noncontributory. SOCIAL HISTORY: Current active soldier at [employer]. Recent travel to [place], [place], [place] and [place] for training. Most recent travel is to [place] this past October where he lives with his family. Denies any recent sick contacts. Admits to alcohol use, drinking about a 12 pack of beer on the weekends. Denies any cigarette use, but admits to chewing tobacco and remote vaping history in the past. Admits to social marijuana use, but denies any other recreational drug use such as IV drugs. REVIEW OF SYSTEMS: CONSTITUTIONAL: Positive for weight loss secondary to decreased appetite due to pain from swallowing, due to unable to eat. Denies fevers. Admits to chills. Admits to malaise and fatigue. HEENT: Denies any head trauma, headaches, lightheadedness or dizziness. Admits to blurry vision, eye discharge, conjunctival hemorrhage bilaterally. Admits to mouth blisters, throat blisters, open wounds in his mucous membranes. Denies any eye pain or curtain getting pulled over his vision. CARDIOVASCULAR: Denies any substernal chest pain. Admits to shortness of breath. Denies any paroxysmal nocturnal dyspnea (PND). Denies any lower extremity edema or palpitations. Does admit to orthopnea, but improved when he lays on his left side. RESPIRATORY: Positive for productive cough, pinkish sputum, wheezing, difficulty breathing, chest pain due to increased mucous production, denies any history of asthma. GASTROINTESTINAL (GI): Denies any abdominal pain, nausea, vomiting, constipation. Does admit to pain with defecation around the rectal area. Denies any blood in his stool though. Admits to decreased appetite and weight loss. GENITOURINARY (): Positive for dysuria. Denies any hematuria. Admits to polyuria, but no hesitancy or dribbling. MUSCULOSKELETAL: Denies any muscle pain, stiffness or joint swelling. INTEGUMENTARY: Admits to diffuse rash all over body, ulcerative wounds in his mouth, throat and lips. Conjunctival changes on his eyes. NEUROLOGIC: Denies any muscle weakness or numbness or tingling, or paresthesias. PSYCHIATRIC: Denies any depression, anxiety, paranoia. ENDOCRINE: Denies any polydipsia, polyphagia or diabetes history. LYMPHATIC: Denies any lymphadenopathy. PHYSICAL EXAMINATION: VITALS: Temperature 98.5, pulse 74, respirations 20, blood pressure 143/79 (100), pulse oximetry 96% on comfort flow 10 liters. GENERAL: This is a 19-year-old male who does not appear in acute distress until he is coughing, appears very uncomfortable during the exam. He appears ill, lying in bed, appropriately answering questions. HEENT: Atraumatic, normocephalic. Conjunctival hemorrhage bilaterally with slight eyelid edema. Diffuse ulcerations appreciated on the upper and lower lips, the roof of his mouth as well as the back of the throat. The remaining mouth appears white in color. NECK: Supple. No masses. Trachea midline. No lymphadenopathy noted. LUNGS: Diffuse expiratory rhonchi appreciated bilaterally. Significant amount of coughing with deep inhalation with very minimal accessory muscle use. HEART: Regular rate and rhythm. No audible murmurs, rubs or gallops. ABDOMEN: Soft, nontender, nondistended with normal active bowel sounds. EXTREMITIES: No lower extremity edema or cyanosis. SKIN: Diffuse circular satellite lesions on his face, neck, arms, legs, chest, back, abdomen, buttocks, scrotum and mucosa. There is multiple fluid like vesicles with erythematous bases along the jaw and in the upper arms bilaterally. No scaling or sloughing of the skin noted on the lower extremities. There are multiple open wounds appreciated around the lips. LABORATORIES: WBC 11.8, hemoglobin 13.5, hematocrit 40.6, platelets 303. Chemistries: Sodium 137, potassium 3.5, chloride 103, carbon dioxide 26, anion gap is 8, BUN 15, creatinine 1.03, fasting glucose 154, lactic acid 2.2, repeat was 1.3, calcium 8.8, total bilirubin 0.7, AST 18, ALT 20, alkaline phosphatase 59. Coagulation profile within normal limits. Urine toxicology was negative. Urinalysis urine blood trace ketones, urine protein with 16 WBCs. Serology: EBV capsid, IgG and IgM positive. EBV nuclear antigen antibodies positive. Microbiology: Blood cultures times two negative for growth after 24 hours. Respiratory panel positive for Mycoplasma pneumoniae. Viral cultures, urine culture and sputum cultures currently pending. IMAGING: Chest x-ray negative for any acute processes. Neck CT unremarkable. CT of the chest bronchial wall thickening, diffusely scattered areas of mild tree-in-bud type nodular lung changes consistent with early inflammatory disease. There was no evidence of ground glass opacities or area of consolidation, suggest the usually described features of vaping associated lung disease. Findings may reflect bronchitis. IMPRESSION/PLAN: This is a 19-year-old gentleman who has no true past medical history who was admitted with Mycoplasma pneumoniae with severe hypoxia, currently needing 10 liters of comfort flow oxygen who developed worsening mucositis and diffuse rash. He has been evaluated by dermatology and infectious disease, who does not believe this is Veloz-Lexx syndrome. ASSESSMENTS: 1. Acute hypoxic respiratory failure. Currently on 10 liters of oxygen comfort flow. The patient has a remote history of chewing tobacco, distant history of vaping injury. Currently positive for Mycoplasma pneumoniae on antibiotics. 2. Abnormal CT of the chest. Shows bronchial wall thickening consistent with early inflammatory disease. 3. Vague chewing tobacco and vaping history. 4. Mycoplasma pneumoniae positive. 5. Abnormal rash. Evaluated by dermatology. Classic presentation of Mycoplasma induced rash and mucositis, currently on IV doxycycline. 6. Possible remote history of MRSA carrier. PLAN/RECOMMENDATIONS: Because of his supposed hypoxemia, CT of the lung initially on admission does not look significant to be on 10 liters of nasal cannula comfort flow. Will obtain an ABG and repeat CT of the lung with contrast to rule out a pulmonary embolism (PE). Because of his remote history of vaping and chewing tobacco, we need to consider EVALI. Recommend to continue with the IV doxycycline every 12 hours per infectious disease. Due to the possible EVALI and because of underlying Mycoplasma rash, studies have shown that short term course of steroids can benefit with inflammation. Will put on 60 mg of Solu-Medrol daily for the next 5 days and continue to monitor. Because of the possible remote history of MRSA carrier will also get an MRSA PCR screen as well. Thank you for this consultation. We will follow along with you while the patient is admitted.
--- NOTE | 2019-12-08 14:51 | IPNPDOC ---
Text Note Date of Service The patient was seen on 12/08/19. NOTE SUBJECTIVE: Patient is seen at bedside. He is now 97% on 10 L NC. He is tired, and was afebrile overnight. He says he has not used the lidocaine jelly yet, and still has dysuria and pain with bowel movements. He is minimally conversant due to pain, and thinks his rash has gotten worse. OBJECTIVE: Vital signs: as below General: This is a tired and ill-appearing young male who is in no acute distress, lying in bed in the progressive care unit (PCU). HEENT: Atraumatic, normocephalic. Subconjunctival hemorrhages noted bilaterally with injection of the lower lids bilaterally. Ulcerations are noted on the patient's lips with more cracking and erosion. There continue to be ulcerations on the roof of his mouth, as well as the buccal mucosa. His tongue is white without ulcerations. Lungs: Mild accessory muscle use (scalene) without retractions. Diffuse inspiratory crackles bilaterally with expiratory wheezes, no transmitted upper airway sounds or coughing. Heart: Regular rate and rhythm. No murmurs, gallops or rubs. Abdomen: Soft, nontender, nondistended. Normoactive bowel sounds. No organomegaly appreciated. Extremities: No clubbing, cyanosis or edema. Back: No costovertebral tenderness bilaterally. Skin: Diffuse 6 mm to 15 mm circular targetoid lesions with central vesiculations and ulcerations covering his face, neck, arms, legs, chest, back, abdomen, buttocks, scrotum, anal mucosa, and penis with a targetoid lesion and ulceration on the urethral meatus; no improvement from last night. There are also more numerous 4-6 mm vesicles with erythematous bases along the jaw, bilaterally. Negative Nikolsky's sign, no diffuse erythema or erythroderma present. No scaling or sloughing of the skin noted. LABORATORY DATA: as below (no CBC or chemistries ordered for today) Serology: Syphilis is nonreactive, chlamydia trachomatis is negative. Cole screen was negative. Neisseria gonorrhoeae was negative. Trichomonas vaginalis was negative. HIV, HSV 1 and 2, Rubeola and rubella are pending. ABG: consistent with respiratory alkalosis Microbiology: Blood cultures times two from 12/06/2019 showed no growth after 48 hours. Respiratory virus panel from 12/06/2019 was positive for Mycoplasma pneumoniae. Viral culture is pending. HSV 1 and 2 are pending. Urine culture is negative. Sputum Gram stain showed few gram-positive rods and few gram-positive cocci in chains, culture is pending. IMAGING: Chest x-ray from 12/06/2019 shows no acute disease. Neck CT from 12/06/[address] from 12/06/2019 showed bronchial wall thickening diffusely with scattered areas of mild tree-in-bud type nodular lung changes consistent with early inflammatory disease. No evidence of ground-glass opacity or areas of consolidation. CT Angiography of the chest done today shows: Collapse of the middle right lobe, no evidence of PE, mild ground-glass opacities bilaterally Electrocardiogram done in the emergency department showed sinus tachycardia at 106 beats per minute. Normal axis. Nonspecific T-wave changes. No priors for comparison. 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 He is hospital day #3, antibiotics day #3, steroids day #3. PLAN: 1. Rash. Continue to favor Mycoplasma-induced rash and mucositis (classical presentation with positive Mycoplasma pneumoniae on respiratory virus panel). -Continue azithromycin +/- doxycycline, as macrolides are preferred therapy against Mycoplasma species (Andre SG et al. J Thai Med Sci. 2018 Jul 18;33(43):e268/Luzma RAM et al. Clin Infect Dis. 2008May 13;48(12):1649-54.) -Rubella, rubeola, HIV, HSV pending -MRSA screen negative -EBV testing positive, however his rash is not maculopapular and is more in keeping with M. pneumoniae-induced rash. It is possible that he has two concurrent infections and EBV may be contributing to sore throat, fatigue, malaise, and could be complicating care. Defer to ID for care regarding EBV -Mother believes similar type eruption limited to mouth 4-5 years ago when he was sick, resolved without hospitalization May continue with Solumedrol current dosing if intended for CAP. High dosing for presumed SJS or TEN not recommended as these diagnoses are not favored (please see original note). Will defer further orders to primary team. We will continue to follow patient. VS,Fishbone, I+O VS, Fishbone, I+O Vital Signs Date Time Temp Pulse Resp B/P (MAP) Pulse Ox O2 Delivery O2 Flow Rate FiO2 12/08/19 12:00 10.0 12/08/19 12:00 98.0 83 21 138/75 (96) 95 Comfort Flow 12/06/19 16:30 50 I&O- Last 24 Hours up to 6 AM 12/08/19 05:59 Intake Total 2475 ml Output Total 1225 ml Balance 1250 ml GME ATTESTATION GME ATTESTATION My faculty preceptor for this patient encounter was physically present during the encounter and was fully available. All aspects of the patient interview, examination, medical decision making process, and medical care plan development were reviewed and approved by the faculty preceptor. The faculty preceptor is aware and concurs with the plan as stated in the body of this note and will attest to such by his/her cosignature. ATTENDING NOTE I independently saw the patient and reviewed the case with the resident and agree with the findings as detailed above HEAVEN RODRIGUEZ D.O. Dec 08, 2019 14:51 ÓSCAR FOOTE MD Dec 08, 2019 16:49
--- NOTE | 2019-12-08 16:11 | IPNPDOC ---
Subjective Date Seen The patient was seen on 12/08/19. Subjective Chief Complaint/HPI Seen and examined at bedside, mother at bedside, c/o dyphagia and cough/sob. General: Reports: Fatigue Constitutional: Reports: Weakness Eyes: Reports: Conjunctivae inflammation, Eyelid inflammation, Redness ENT: Reports: Dysphagia, Sore Throat Skin: Reports: Rash Pulmonary: Reports: Cough Genitourinary: Reports: Dysuria Objective Physical Examination General Exam: Positive: Mild Distress Eye Exam: Positive: Other Eye Symptoms (conjunctival hemorrhages b/l, yellow discharge both eyes) ENT Exam: Positive: Other ENT (dry blisters noted on lips, erythema to pharynx) Chest Exam: Positive: Diminished Heart Exam: Positive: Rate Normal Skin Exam: Positive: Rash (punctate rash across torso, upper and lower extremities b/l) Assessment /Plan Assessment 1. Mycoplasma pneumonia with diffuse rash/mucosal involvement. - respiratory panel positive for Mycoplasma Pneumonia. - STD panel negative, EBV/HSV/rubella/rubeola pending. - CT chest with diffuse bronchial wall thickening with scattered areas of mild tree in bud type inflammatory changes. - seen by ID, dermatology. - blood/urine cx NG, sputum gram stain white cells, few gram-positive cocci, few gram-positive rods, pending cx. - droplet/contact precautions. - consult placed to opthalmology. 2. hypoxia - secondary to #1. - currently on 10L, sats in low 90's. - consult placed to pulmonary. - repeat CT chest/ABG pending. 3. YORDY - resolved. - IVF NS, monitor. 4. hypokalemia - resolved, monitor. Plan/VTE VTE Prophylaxis Ordered?: Yes VS, I&O, 24H, [facility] Vital Signs/I&O Vital Signs Date Time Temp Pulse Resp B/P (MAP) Pulse Ox O2 Delivery O2 Flow Rate FiO2 12/08/19 08:20 98.5 74 20 143/79 (100) 96 Comfort Flow 10.0 12/06/19 16:30 50 I&O- Last 24 Hours up to 6 AM 12/08/19 06:00 Intake Total 2665 ml Output Total 825 ml Balance 1840 ml Laboratory Data 24H LABS Laboratory Tests 2 12/07/19 16:01: 12/08/19 05:18: 12/08/19 10:04: Blood Gas Bicarbonate Standard 23.4, Arterial Blood pH 7.463H, Arterial Blood Partial Pressure CO2 30.8L, Arterial Blood Partial Pressure O2 117.5H, Arterial Blood Total CO2 22.5, Arterial Blood HCO3 21.6L, Arterial Blood Base Excess - 1.3, Arterial Blood Oxygen Saturation 98.3 Microbiology Microbiology 12/06/19 Gram Stain - Final, Resulted 12/06/19 Sputum Culture, Resulted Pending 12/06/19 Urine Culture - Final, Complete 12/06/19 Viral Culture, Received Pending 12/06/19 Herpes Simplex Virus I (PCR), Received Pending 12/06/19 Herpes Simplex Virus II (PCR), Received Pending 12/06/19 Respiratory Virus Panel (PCR) (HONEY) - Final, Complete Mycoplasma Pneumoniae 12/06/19 Blood Culture - Preliminary, Resulted No growth after 24 hours . All specim... 12/06/19 Blood Culture - Preliminary, Resulted No growth after 24 hours . All specim... KEENAN DUDLEY MD Dec 08, 2019 10:30
[2019-12-08 17:21] LABS: RUBELLA IgG QUALITATIVE IMMUNE (IMMUNE)
[2019-12-08] MEDS ORDERED: FLUORESCEIN OPHTH 1 MG STRIP OU ONE (18:00)
[2019-12-08] MEDS ORDERED: TETRACAINE 0.5% OPHTH SOLN 4ML OU ONE (18:00)
--- NOTE | 2019-12-08 18:29 | IPN ---
DATE: 12/08/2019 Liam states the rash is getting worse, but he has become afebrile. He seems to have less secretions. He still on oxygen at 10 liters. No complete blood count (CBC) was done today or labs. They were done yesterday. White count was 11.8. Sputum culture is still pending. Urine culture was negative. Herpes polymerase chain reaction (PCR) is pending. Blood cultures are negative. IMAGING: CT angiogram was done at 11:20. Result is still pending. MEDICATIONS: - intravenous (IV) azithromycin 12/07/2019 - doxycycline 100 mg IV every 12 hours - Benadryl as needed Pulmonary has been consulted and the case has been discussed with Dr. De La Rosa. On physical exam, temperature is 98.5, pulse 74, respirations 20, oxygen saturation 96% on 10 liters nasal cannula. HEART: Normal S1, S2. No murmurs, rubs or gallops. LUNGS: Diminished breath sounds with few exterior rhonchi. ABDOMEN: Soft, nontender. No visceromegaly. EXTREMITIES: No edema. He has multiple target lesions diffusely involving his whole back, abdomen, thighs, which have increased in number compared to yesterday. His eyes are very erythematous with hemorrhagic conjunctiva, mouth with mucositis. IMPRESSION: 1. Mycoplasma pneumonia with severe hypoxia. CT angiogram was obtained to rule out pulmonary embolism and make sure there is no underlying pathology causing the severe hypoxia, such as vaping lung injury. Dr. De La Rosa would like to restart steroids for a possibility of vaping lung injury, as the patient has a history of vaping. 2. Severe mucositis and mycoplasma-induced rash. This looks like erythema multiforme. 3. Severe bilateral conjunctivitis. Ophthalmology has been consulted. PLAN: Upon review of the literature, there has been some resistant cases of mycoplasma pneumonia to Zithromax in [place] well [place] and there is no documentation that there is need for double coverage for mycoplasma with two atypical drugs, including doxycycline and Zithromax and therefore, Zithromax could be discontinued. Consult ophthalmology. CONSULTATIONS Some J end of dictation dictated by [place] to armstrong
[2019-12-08] MEDS ORDERED: PHENYLEPHRINE 1% NASAL DROP 30 ML ONE (18:30)
[2019-12-08] MEDS ORDERED: PHENYLEPHRINE 2.5% OPHTH SOL 2ML OU ONE (19:00)
[2019-12-08] MEDS ORDERED: TROPICAMIDE 0.5% OPHTH SOLN 15 ML OU ONE (19:00)
[2019-12-08] MEDS: RAMELTEON 8 MG TAB (ROZEREM) PO SCH ×2 (20:34→21:00)
[2019-12-08] MEDS: prednisoLONE ACET 1% OPHTH SUSP 5ML OU SCH (20:34)
[2019-12-08] MEDS: OFLOXACIN 0.3 % (OCUFLOX) OPTH SOL 5ML OU SCH (20:35)
[2019-12-08] MEDS: CYCLOPENTOLATE 2% OPHTH SOLN 2ML BTL OU SCH (20:35)
[2019-12-08] MEDS: LACRILUBE (AKWA TEARS) OPHTH OINT 3.5 GM OU SCH (20:35)
[2019-12-08] MEDS: AZITHROMYCIN INJ 500 MG, VIAL MATE ADAPTER 1 EACH in D5W 250 ML IV SCH (21:36)
[2019-12-09] VITALS (25 sets, daily range): BP systolic 140–159; BP diastolic 74–91; O2SAT 89–93
[2019-12-09] MEDS: ACETAMINOPHEN TAB 650MG DOSE (2X325MG) PO PRN (01:14)
[2019-12-09 05:42] LABS: HEMOGLOBIN 12.6 g/dl (13.5-17.5); MEAN CORPUSCULAR HEMOGLOBIN 28.4 pg (27.0-33.0); MEAN CORPUSCULAR HGB CONC 33.2 g/dl (32.0-36.5); MEAN CORPUSCULAR VOLUME 85.6 fl (80.0-96.0); PLATELET COUNT, AUTOMATED 355 10^3/uL (150-450); RED BLOOD COUNT 4.44 10^6/uL (4.30-6.10); WHITE BLOOD COUNT 10.5 10^3/uL (4.0-10.0)
[2019-12-09 06:01] LABS: BLOOD UREA NITROGEN 15 MG/DL (7-18); C REACTIVE PROTEIN QUANTITATIV 4.51 MG/DL (0.00-0.30); CARBON DIOXIDE LEVEL 23 MEQ/L (21-32); CHLORIDE LEVEL 106 MEQ/L (98-107); CREATININE FOR GFR 0.88 MG/DL (0.70-1.30); GLOMERULAR FILTRATION RATE > 60.0 (>60); GLUCOSE, FASTING 103 MG/DL (70-100); POTASSIUM SERUM 3.3 MEQ/L (3.5-5.1); SODIUM LEVEL 139 MEQ/L (136-145)
[2019-12-09] MEDS: CYCLOPENTOLATE 2% OPHTH SOLN 2ML BTL OU SCH ×2 (09:06→21:26)
[2019-12-09] MEDS: OFLOXACIN 0.3 % (OCUFLOX) OPTH SOL 5ML OU SCH ×2 (09:07→21:26)
[2019-12-09] MEDS: prednisoLONE ACET 1% OPHTH SUSP 5ML OU SCH ×4 (09:07→21:27)
[2019-12-09] MEDS: POLYVINYL ALCOHOL OPHTH SOLN 15 ML(LIQUITEARS) OU SCH ×4 (09:07→21:26)
[2019-12-09] MEDS: methylPREDNISolone INJ 125 MG/2 ML VIAL (J2930) IV SCH (09:08)
[2019-12-09] MEDS: KETOROLAC 30 MG/ML VIAL (J1885) IV PRN ×3 (09:08→23:05)
[2019-12-09] MEDS: NS 1,000 ML IV SCH ×2 (09:09→23:05)
[2019-12-09] MEDS: KCL 10MEQ/100ML SWI (KRUN) 10 MEQ in IV 1 EA IV SCH ×2 (09:09→10:05)
[2019-12-09] MEDS: DOXYCYCLINE HYCLATE 100 MG in D5W MINI-BAG PLUS 100 ML IV SCH ×2 (10:47→23:05)
--- NOTE | 2019-12-09 10:59 | IPN ---
DATE: 12/09/2019 NOTE: Mr. Vogel did well overnight. This morning, he feels better. His cough is decreased, though he is still coughing. He feels his congestion is more on the right side. No chest pain or pressure. No nausea or emesis. He feels his mouth sores and swelling are improving. He tells me "Once the swelling goes down, I am ready to go". No new difficulties overnight. OBJECTIVE/PHYSICAL EXAMINATION: General: Mr. Vogel is sitting in bed in no acute distress. He can complete full sentences. No significant coughing at this time when evaluated. Vital Signs: Temperature 98.3 with a T-max of 101.2. Pulse 77. Respiratory rate 22. Blood pressure 159/76 with a MAP of 103. SPO2 91-93% on room air. HEENT: Decreased redness to conjunctivae. Nares patent bilaterally. Moist mucosa. Oropharynx with multiple vesicular lesions involving the soft palate as well as the lips. Moist mucosa. Neck: Supple, without jugular venous distention (JVD), thyromegaly or masses. Trachea is midline. Lymph: Without cervical or supraclavicular lymphadenopathy. Lungs: Symmetric excursion, good air entry, scattered rhonchi, end inspiratory squeak in the right midlung region as well as at the left base. Scattered fine crackles. No wheezes. Normal I:3. No accessory muscle usage or retractions. Cardiovascular: Regular rate and rhythm with a normal S1, S2. No murmur, rub or gallop appreciated. Abdomen: Positive bowel sounds, soft, nondistended. No hepatosplenomegaly or masses appreciated. Extremities: Without clubbing, cyanosis or edema. Palpable pedal pulses. Skin: Still with multiple target lesions on his back, abdomen and extremities. LABORATORY DATA: CBC from this morning showed a hemoglobin of 12.6, hematocrit 38, platelet count 355,000, white blood cell count 10,500. Chemistries shows a sodium of 139, potassium 3.3, chloride 106, bicarbonate 23, anion gap 10, BUN 15, creatinine 0.9, glucose 103, calcium 8.0, CRP 4.5 (down from 23.9 on 12/06/2019). Methicillin-resistant Staphylococcus aureus (MRSA) PCR negative. I reviewed his chest CT scan pulmonary angiogram from yesterday as well as the report. That CT scan showed bilateral patchy ground glass opacities in the lower lobes as well as some regions of the tree and bud pattern in the left lower lobe. No hilar or mediastinal adenopathy. What is also seen is a partial right middle lobe atelectasis. IMPRESSION: 1. Hypoxemia, resolving. Some of his hypoxemia was artifactual given shift in the hemoglobin dissociation curve. Some of it is likely due to the parenchymal lung process so he does not have significant involvement and would not expect him to have high oxygen requirements if any. In fact, his room air sats now are appropriate for the findings on his x-ray and CT scan. 2. Right middle lobe partial collapse. This is likely secondary to mucous plugging. 3. Mycoplasma pneumonia. 4. Rash, felt secondary to Mycoplasma pneumonia. 5. Vague history of tobacco use and vaping. RECOMMENDATIONS: 1. Agree with current management. 2. Agree with continuing corticosteroids for a total of 5 days. I am not strongly suspicious of any e-cigarette or vaping product use-associated lung injury (EVALI), but in case there is some injury it is reasonable, as well as, can be used for Mycoplasma. 3. In regards to his right middle lobe partial collapse, I would not institute any therapy at this time. Typical therapy would be to induce coughing. He has certainly been able to cough significantly on his own. 4. I would recommend obtaining a two-view chest x-ray on Wednesday as this collapse should be able to be seen on the x-ray to see if it is resolved. If not, and if his cough remains reduced, at that time would institute hyperinflation therapy with such devices as EZ-PAP, Acapella, etc.
--- NOTE | 2019-12-09 14:55 | IPNPDOC ---
Subjective Date Seen The patient was seen on 12/09/19. Subjective Chief Complaint/HPI seen and examined at bedside, feels slightly better today, awake and alert. Eyes: Reports: Pain, Conjunctivae inflammation, Eyelid inflammation, Redness ENT: Reports: Sore Throat Skin: Reports: Rash Pulmonary: Reports: Cough Objective Physical Examination General Exam: Positive: Mild Distress Eye Exam: Positive: Other Eye Symptoms (conjunctival hemorrhages b/l, yellow discharge both eyes) ENT Exam: Positive: Other ENT (dry blisters noted on lips, erythema to pharynx) Chest Exam: Positive: Diminished Heart Exam: Positive: Rate Normal Skin Exam: Positive: Rash (punctate rash across torso, upper and lower extremities b/l) Assessment /Plan Assessment 1. Mycoplasma pneumonia with diffuse rash/mucosal involvement. - respiratory panel positive for Mycoplasma Pneumonia. - STD panel negative, HSV pending, rubella/rubeola immune. - CT chest with diffuse bronchial wall thickening with scattered areas of mild tree in bud type inflammatory changes. - ID following, seen by dermatology. - blood/urine cx NG x 72 hours, sputum gram stain white cells, few gram-positive cocci, few gram-positive rods with cx pending, urine cx NG. - droplet/contact precautions. - seen by opthalmology. - continue IV doxycycline, zithromax has been discontinued. 2. acute hypoxic respiratory failure - secondary to #1, improving. - taken off oxygen overnight, low 90's on RA. - pulmonary consulted and following. - repeat CT chest results noted, RML partial collapse, negative for PE, mgmt per pulmonary. - repeat CXR Wednesday. - started on IV steroids. 3. YORDY - resolved. - IVF NS, monitor. 4. hypokalemia - supplement, repeat levels. Plan/VTE VTE Prophylaxis Ordered?: Yes VS, I&O, 24H, Fishbone Vital Signs/I&O Vital Signs Date Time Temp Pulse Resp B/P (MAP) Pulse Ox O2 Delivery O2 Flow Rate FiO2 12/09/19 08:13 98.3 77 22 159/76 (103) 91 Room Air 12/09/19 04:00 10.0 12/06/19 16:30 50 I&O- Last 24 Hours up to 6 AM 12/09/19 05:59 Intake Total 1705 ml Output Total 2675 ml Balance -970 ml Laboratory Data 24H LABS Laboratory Tests 2 12/08/19 12:30: Methicillin-Resist S.aureus DNA PCR NOT DETECTED 12/09/19 05:18: Nucleated Red Blood Cells % (auto) 0.0, Anion Gap 10, Glomerular Filtration Rate > 60.0, Calcium Level 8.0L, C-Reactive Protein, Quantitative 4.51H CBC/BMP Laboratory Tests 12/09/19 05:18 Microbiology Microbiology 12/06/19 Gram Stain - Final, Resulted 12/06/19 Sputum Culture, Resulted Pending 12/06/19 Urine Culture - Final, Complete 12/06/19 Viral Culture, Received Pending 12/06/19 Herpes Simplex Virus I (PCR), Received Pending 12/06/19 Herpes Simplex Virus II (PCR), Received Pending 12/06/19 Respiratory Virus Panel (PCR) (HONEY) - Final, Complete Mycoplasma Pneumoniae 12/06/19 Blood Culture - Preliminary, Resulted No Growth after 72 hours. All specime... 12/06/19 Blood Culture - Preliminary, Resulted No Growth after 72 hours. All specime... KEENAN DUDLEY MD Dec 09, 2019 11:05
--- NOTE | 2019-12-09 18:45 | CR ---
DATE OF CONSULTATION: 12/09/2019 CHIEF COMPLAINT: Bilateral red eyes. 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 He presented to the emergency department at [facility] approximately one week ago with a productive yellow cough and subjective fevers, chills and shortness of breath. He was evaluated by the emergency department staff and was found to be streptococcus positive and given treatment with home antibiotics in the form of oral amoxicillin and was sent home. Approximately 48 hours later, he developed worsening cough, lower extremity target coin-like rash and some swelling around the lips as well as some mucosal sloughing in the mouth. He was admitted at that time and was found to be positive for mycoplasma pneumonia. About 24 hours later, the patient developed bilateral red eyes and an ophthalmology consultation was ordered. The patient was seen and examined in an air droplet and contact isolation room with his mother and grandmother at the bedside. Patient reports bilateral decreased visual acuity, bilateral red eyes and eye pain. He denies any sick contact, travel or flashes and floaters in the vision. He denies any past ocular history or trauma. PAST MEDICAL HISTORY: He admits to a similar episode but much less severe, episode of atopic allergic symptoms where he noted that after having an upper respiratory illness and some angioedema with blisters around the his mouth that were self-limited and resolved without treatment. That was approximately four years ago. SURGICAL HISTORY: tonsillectomy/adenoid removal. PAST OCULAR HISTORY: None. FAMILY HISTORY: No pertinent family history. Denies any history of retinal detachment, keratoconus. ALLERGIES: Denies SOCIAL HISTORY: He denies tobacco use. He occasionally drinks alcohol in social situations. Patient was recently in [place] visiting his family over the Holidays. PHYSICAL EXAMINATION: (hand held slit lamp exam, tetracaine and fluorescein was placed) Visual acuity uncorrected in the right eye is approximately 20/30, in the left eye is 20/30. His pupils are equal, round and reactive to light. There is no afferent pupillary defect (APD). Extraocular muscles are full. Both eyes without restriction. The confrontation visual patel are full to count fingers in both eyes. The lids, lashes and adnexa are significant for severe upper and lower eyelid thickening with blisters and ulceration. There is no lagophthalmos. Conjunctivae and sclera are bilaterally bullous with severe hemorrhagic conjunctivitis, without membrane or pseudomembrane formation. The lower and upper eyelids were everted with somewhat difficult due to the patient's very uncomfortable state, no membranes or pseudomembranes were visible. The cornea was clear without infitrate, edema or epithelial defects. Lens is clear OU. The patient was dilated with 2.5% phenylephrine and 0.5% tropicamide. This is a very limited exam. The patient was uncooperative due to being very uncomfortable and could not be completed. I was only able to visualize a good red reflex, but I could not visualize the optic nerve, retina or macula view. ASSESSMENT AND PLAN: This is a 19-year-old with culture positive mycoplasma pneumonia. 1. Bilateral severe hemorrhagic bullous conjunctivitis: - Without membrane or pseudomembrane formation. - Start prednisolone acetate 1% four times a day bilaterally - Start cyclopentolate 2% three times a day to help out with his discomfort - Prophylactically treat with ofloxacin twice a day, - Increase Artificial Tears to 4x/day and as frequent as needed - Refresh ointment at night to prevent exposure keratopathy. I will re-examine the patient in approximately 72 hours, once he has time to improve with medication on board to better assess his ocular status. I could not perform a dilated exam well due his severe discomfort at this time. All questions were addressed with the family in the room, as well as the patient. Re-exam in 72 hours or sooner if any changes. Thank you for the consultation. If there are any questions, please call [phone]. [facility]
--- NOTE | 2019-12-09 19:19 | IPNPDOC ---
Text Note Date of Service The patient was seen on 12/09/19. NOTE SUBJECTIVE: Patient is seen at bedside. He is now 92% on room air. He is much more alert this morning and according to the nursing staff he has been eating a lot of jello. He was afebrile overnight. He says he no longer has dysuria or pain with bowel movements. He is feeling much better this morning and is able to breathe better too. OBJECTIVE: Vital signs: as below General: This is a young male who is in no acute distress, much more alert and sitting up in bed in the progressive care unit (PCU). HEENT: Atraumatic, normocephalic. Subconjunctival hemorrhages noted bilaterally with injection of the lower lids bilaterally. Ulcerations are noted on the patient's lips with less cracking and erosion. There continue to be ulcerations on the roof of his mouth, as well as the buccal mucosa. His tongue is white without ulcerations. Lungs: No accessory muscle use. Diffuse inspiratory and expiratory crackles bilaterally, no transmitted upper airway sounds or coughing. Heart: Regular rate and rhythm. No murmurs, gallops or rubs. Abdomen: Soft, nontender, nondistended. Normoactive bowel sounds. No organomegaly appreciated. Extremities: No clubbing, cyanosis or edema. Back: No costovertebral tenderness bilaterally. 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 Negative Nikolsky's sign, no diffuse erythema or erythroderma present. No scaling or sloughing of the skin noted. LABORATORY DATA: as below Serology: Syphilis is nonreactive, chlamydia trachomatis is negative. [place] screen was negative. Neisseria gonorrhoeae was negative. Trichomonas vaginalis was negative. Microbiology: Blood cultures times two from 12/06/2019 showed no growth after 72 hours. Respiratory virus panel from 12/06/2019 was positive for Mycoplasma pneumoniae. Viral culture is pending. HSV 1 and 2 is negative. Urine culture is negative. Sputum Gram stain showed few gram-positive rods and few gram-positive cocci in chains, culture is pending. 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 He is hospital day #4, antibiotics day #4, steroids day #4. PLAN: 1. Mycoplasma-induced Rash and Mucositis (classical presentation with positive Mycoplasma pneumoniae on respiratory virus panel). Most important will be to follow recom mendations from ophthalmology regarding eye care. -Received 2 days of azithromycin, and is on day#4 of doxycycline. Should he decompensate, would recommend restarting azithromycin. Continue doxycycline as prescribed. -Rubella & Rubeola immune -HIV negative -HSV pending -MRSA screen negative -EBV testing positive, however his rash is not maculopapular and is more in keeping with M. pneumoniae-induced rash. Defer to ID for care regarding EBV May continue with Solumedrol current dosing if intended for CAP. High dosing for presumed SJS or TEN not recommended as these diagnoses are not favored (please see original note). Will defer further orders to primary team. We will continue to follow patient, will also be happy to see outpatient in follow up 2 weeks after discharge VS,Kelvin, I+O VS, Kelvin, I+O Laboratory Tests 12/09/19 05:18 Vital Signs Date Time Temp Pulse Resp B/P (MAP) Pulse Ox O2 Delivery O2 Flow Rate FiO2 12/09/19 18:00 91 Room Air 12/09/19 16:18 97.4 84 22 143/91 (108) 12/09/19 04:00 10.0 12/06/19 16:30 50 I&O- Last 24 Hours up to 6 AM 12/09/19 06:00 Intake Total 1405 ml Output Total 2675 ml Balance -1270 ml GME ATTESTATION GME ATTESTATION My faculty preceptor for this patient encounter was physically present during the encounter and was fully available. All aspects of the patient interview, examination, medical decision making process, and medical care plan development were reviewed and approved by the faculty preceptor. The faculty preceptor is aware and concurs with the plan as stated in the body of this note and will attest to such by his/her cosignature. ATTENDING NOTE I saw the patient independently, I discussed the plan with the resident and agree with the above documentation. HEAVEN RODRIGUEZ D.O. Dec 09, 2019 19:19 ÓSCAR FOOTE MD Dec 09, 2019 19:25
[2019-12-09] MEDS: RAMELTEON 8 MG TAB (ROZEREM) PO SCH (21:00)
[2019-12-09] MEDS: LACRILUBE (AKWA TEARS) OPHTH OINT 3.5 GM OU SCH (21:27)
[2019-12-10] VITALS (23 sets, daily range): BP systolic 138–163; BP diastolic 72–89; O2SAT 89–95
[2019-12-10 05:27] LABS: HEMATOCRIT 38.5 % (42.0-52.0); HEMOGLOBIN 13.4 g/dl (13.5-17.5); MEAN CORPUSCULAR HEMOGLOBIN 29.3 pg (27.0-33.0); MEAN CORPUSCULAR HGB CONC 34.8 g/dl (32.0-36.5); MEAN CORPUSCULAR VOLUME 84.1 fl (80.0-96.0); PLATELET COUNT, AUTOMATED 376 10^3/uL (150-450); RED BLOOD COUNT 4.58 10^6/uL (4.30-6.10); WHITE BLOOD COUNT 10.4 10^3/uL (4.0-10.0)
[2019-12-10 05:48] LABS: BLOOD UREA NITROGEN 16 MG/DL (7-18); CALCIUM LEVEL 8.3 MG/DL (8.5-10.1); CARBON DIOXIDE LEVEL 24 MEQ/L (21-32); CHLORIDE LEVEL 106 MEQ/L (98-107); CREATININE FOR GFR 0.89 MG/DL (0.70-1.30); GLOMERULAR FILTRATION RATE > 60.0 (>60); GLUCOSE, FASTING 108 MG/DL (70-100); POTASSIUM SERUM 3.3 MEQ/L (3.5-5.1); SODIUM LEVEL 138 MEQ/L (136-145)
[2019-12-10 07:07] LABS: MAGNESIUM LEVEL 2.3 MG/DL (1.8-2.4)
--- NOTE | 2019-12-10 08:47 | IPNPDOC ---
Subjective Date Seen The patient was seen on 12/10/19. Subjective Chief Complaint/HPI Seen and examined at bedside, awake and alert, feels better today, was able to shower yesterday evening stating. Off NC oxygen, sob has improved, still with productive cough though less secretions. Denies cp/pressure, fever/chills, n/v/d, abdominal pain. General: Reports: Normal Appetite; Denies: Chills, Night Sweats, Fatigue, Malaise Constitutional: Denies: Chills, Fever, Night Sweats Eyes: Reports: Redness; Denies: Pain, Vision change ENT: Denies: Head Aches, Ear Pain, Dysphagia Skin: Reports: Rash; Denies: Lesions, Breakdown Pulmonary: Denies: Dyspnea, Cough Cardiovascular: Denies: Chest Pain, Palpitations, Orthopnea, Paroxysmal Noc. Dyspnea, Lt Headedness Gastrointestinal: Denies: Nausea, Vomiting, Abdominal Pain, Diarrhea, Constipation Genitourinary: Denies: Dysuria, Frequency, Incontinence, Retention Hematologic: Denies: Bruising, Bleeding Excessively Musculoskeletal: Denies: Neck Pain, Back Pain, Joint Pain, Muscle Pain, Spasms Neurological: Denies: Weakness, Numbness, Change in speech, Confusion Psych: Reports: Mood Normal; Denies: Depression, Memory Issues Objective Physical Examination Eye Exam: Positive: Other Eye Symptoms (conjunctival hemorrhages b/l, yellow discharge both eyes, improving) ENT Exam: Positive: Other ENT (dry blisters noted on lips, erythema to pharynx) Neck Exam: Positive: Supple; Negative: JVD, thyromegaly Chest Exam: Positive: Diminished Heart Exam: Positive: Rate Normal Telemetry: Positive: No significant arrhythmia Abdomen Exam: Positive: Normal bowel sounds, Soft; Negative: Tenderness, Hepatospenomegaly Male Exam: Positive: Normal Genital Exam Extremity Exam: Positive: Normal pulses; Negative: Clubbing, Cyanosis, Edema Skin Exam: Positive: Rash (punctate rash across torso, upper and lower extremities b/l) Neuro Exam: Positive: Normal Gait, Normal Speech, Cranial Nerves 3-12 NL, Reflexes 2+ Psych Exam: Positive: Mental status NL, Mood NL, Oriented x 3 Assessment /Plan Assessment 1. Mycoplasma pneumonia with mucositis/rash - respiratory panel positive for Mycoplasma Pneumonia. - STD panel negative, HSV pending, rubella/rubeola immune, EBV positive. - CT chest with diffuse bronchial wall thickening with scattered areas of mild tree in bud type inflammatory changes, repeat CT RML collapse. - ID/dermatology following. - blood/urine cx NG x 72 hours, sputum gram stain white cells, few gram-positive cocci, few gram-positive rods with cx pending, urine cx NG. - droplet/contact precautions. - seen by opthalmology with recommendations noted. - continue IV doxycycline, zithromax has been discontinued. 2. acute hypoxic respiratory failure - secondary to #1, improving. - taken off oxygen overnight, low 90's on RA. - pulmonary consulted and following. - repeat CT chest results noted, RML partial collapse, negative for PE, mgmt per pulmonary. - repeat CXR Wednesday. - started on IV steroids. 3. YORDY - resolved. - IVF NS, monitor. 4. hypokalemia - supplement, repeat levels. Plan/VTE VTE Prophylaxis Ordered?: Yes VS, I&O, 24H, Fishbone Vital Signs/I&O Vital Signs Date Time Temp Pulse Resp B/P (MAP) Pulse Ox O2 Delivery O2 Flow Rate FiO2 12/10/19 05:00 93 Nasal Cannula 2.0 12/10/19 04:00 98.3 76 18 144/89 (107) 12/06/19 16:30 50 I&O- Last 24 Hours up to 6 AM 12/10/19 06:00 Intake Total 2240 ml Output Total 2300 ml Balance -60 ml Laboratory Data 24H LABS Laboratory Tests 2 12/10/19 05:02: Nucleated Red Blood Cells % (auto) 0.0, Anion Gap 8, Glomerular Filtration Rate > 60.0, Calcium Level 8.3L, Magnesium Level 2.3 CBC/BMP Laboratory Tests 12/10/19 05:02 Microbiology Microbiology 12/06/19 Gram Stain - Final, Complete 12/06/19 Sputum Culture - Final, Complete Haemophilus Influenzae 12/06/19 Urine Culture - Final, Complete 12/06/19 Viral Culture, Received Pending 12/06/19 Herpes Simplex Virus I (PCR), Received Pending 12/06/19 Herpes Simplex Virus II (PCR), Received Pending 12/06/19 Respiratory Virus Panel (PCR) (HONEY) - Final, Complete Mycoplasma Pneumoniae 12/06/19 Blood Culture - Preliminary, Resulted No Growth after 72 hours. All specime... 12/06/19 Blood Culture - Preliminary, Resulted No Growth after 72 hours. All specime... KEENAN DUDLEY MD Dec 10, 2019 08:47
[2019-12-10] MEDS: methylPREDNISolone INJ 125 MG/2 ML VIAL (J2930) IV SCH (09:19)
[2019-12-10] MEDS: KCL 10MEQ/100ML SWI (KRUN) 10 MEQ in IV 1 EA IV SCH ×4 (09:19→16:56)
[2019-12-10] MEDS: KETOROLAC 30 MG/ML VIAL (J1885) IV PRN ×2 (09:20→21:39)
[2019-12-10] MEDS: NS 1,000 ML IV SCH ×2 (09:20→20:08)
[2019-12-10] MEDS: POLYVINYL ALCOHOL OPHTH SOLN 15 ML(LIQUITEARS) OU SCH ×4 (09:32→20:08)
[2019-12-10] MEDS: OFLOXACIN 0.3 % (OCUFLOX) OPTH SOL 5ML OU SCH ×2 (09:32→20:09)
[2019-12-10] MEDS: prednisoLONE ACET 1% OPHTH SUSP 5ML OU SCH ×4 (09:32→20:08)
[2019-12-10] MEDS: CYCLOPENTOLATE 2% OPHTH SOLN 2ML BTL OU SCH ×2 (09:33→20:09)
[2019-12-10] MEDS: DOXYCYCLINE HYCLATE 100 MG in D5W MINI-BAG PLUS 100 ML IV SCH ×2 (12:02→23:07)
[2019-12-10] MEDS: MAGIC MOUTHWASH SUSPENSION BTL SS PRN (13:21)
[2019-12-10 14:07] LABS: HSV-1 DNA Negative (Negative); HSV-2 DNA Negative (Negative)
[2019-12-10] MEDS ORDERED: KCL 10MEQ IN STERILE WATER 100ML As Ordered ONE (16:31)
[2019-12-10] MEDS: RAMELTEON 8 MG TAB (ROZEREM) PO SCH (20:08)
[2019-12-10] MEDS: LACRILUBE (AKWA TEARS) OPHTH OINT 3.5 GM OU SCH (20:09)
[2019-12-11] VITALS (19 sets, daily range): BP systolic 134–149; BP diastolic 78–96; O2SAT 90–95
[2019-12-11 05:37] LABS: HEMATOCRIT 38.2 % (42.0-52.0); MEAN CORPUSCULAR VOLUME 85.1 fl (80.0-96.0); PLATELET COUNT, AUTOMATED 407 10^3/uL (150-450); RED BLOOD COUNT 4.49 10^6/uL (4.30-6.10); WHITE BLOOD COUNT 11.9 10^3/uL (4.0-10.0)
[2019-12-11] MEDS: NS 1,000 ML IV SCH ×2 (05:47→18:45)
[2019-12-11 06:02] LABS: BLOOD UREA NITROGEN 14 MG/DL (7-18); CALCIUM LEVEL 8.4 MG/DL (8.5-10.1); CARBON DIOXIDE LEVEL 22 MEQ/L (21-32); CHLORIDE LEVEL 107 MEQ/L (98-107); CREATININE FOR GFR 0.88 MG/DL (0.70-1.30); GLOMERULAR FILTRATION RATE > 60.0 (>60); GLUCOSE, FASTING 99 MG/DL (70-100); POTASSIUM SERUM 3.3 MEQ/L (3.5-5.1); SODIUM LEVEL 139 MEQ/L (136-145)
[2019-12-11 07:32] LABS: MAGNESIUM LEVEL 2.2 MG/DL (1.8-2.4)
[2019-12-11] MEDS ORDERED: POTASSIUM CHLORIDE 10 MEQ SR TABLET PO ONE (08:00)
[2019-12-11] MEDS: ACETAMINOPHEN TAB 650MG DOSE (2X325MG) PO PRN ×2 (08:44→17:12)
[2019-12-11] MEDS: methylPREDNISolone INJ 125 MG/2 ML VIAL (J2930) IV SCH (08:45)
[2019-12-11] MEDS: KETOROLAC 30 MG/ML VIAL (J1885) IV PRN ×2 (08:45→17:12)
[2019-12-11] MEDS: OFLOXACIN 0.3 % (OCUFLOX) OPTH SOL 5ML OU SCH (08:46)
[2019-12-11] MEDS: POLYVINYL ALCOHOL OPHTH SOLN 15 ML(LIQUITEARS) OU SCH ×4 (08:46→21:02)
[2019-12-11] MEDS: prednisoLONE ACET 1% OPHTH SUSP 5ML OU SCH ×2 (08:47→21:01)
[2019-12-11] MEDS: CYCLOPENTOLATE 2% OPHTH SOLN 2ML BTL OU SCH (08:47)
[2019-12-11] MEDS: MAGIC MOUTHWASH SUSPENSION BTL SS PRN (08:58)
[2019-12-11] MEDS: KCL 10MEQ/100ML SWI (KRUN) 10 MEQ in IV 1 EA IV SCH ×2 (09:00→10:02)
--- NOTE | 2019-12-11 10:07 | REP ---
Chest x-ray: Two views. History: Hypoxemia. Comparison chest x-ray December 06, 2019. Findings: The lungs are symmetrically aerated. No infiltrate is seen. The pleural angles are sharp. Heart size is normal. No abnormal densities seen over the heart to suggest middle lobe disease. Pulmonary vasculature is not increased. Impression: No active disease seen radiographically. Electronically Signed by Vlad Dumas MD 12/11/2019 02:46 P
[2019-12-11] MEDS: DOXYCYCLINE HYCLATE 100 MG in D5W MINI-BAG PLUS 100 ML IV SCH (11:09)
[2019-12-11] MEDS ORDERED: TETRACAINE 0.5% OPHTH SOLN 4ML OU ONE (11:30)
[2019-12-11] MEDS ORDERED: FLUORESCEIN OPHTH 1 MG STRIP OU ONE (11:30)
[2019-12-11] MEDS ORDERED: PHENYLEPHRINE 2.5% OPHTH SOL 2ML OU ONE (11:30)
[2019-12-11] MEDS ORDERED: TROPICAMIDE 0.5% OPHTH SOLN 15 ML OU ONE (11:30)
--- NOTE | 2019-12-11 11:31 | IPNPDOC ---
Subjective Date Seen The patient was seen on 12/11/19. Subjective Chief Complaint/HPI Seen and examined at bedside, denies cp/pressure, n/v/d, abdominal pain. Doing better today, able to eat and drink, still some soarness. Objective Physical Examination Eye Exam: Positive: Other Eye Symptoms (conjunctival hemorrhages b/l, yellow discharge both eyes, improving) ENT Exam: Positive: Other ENT (dry blisters noted on lips, erythema to pharynx) Neck Exam: Positive: Supple; Negative: JVD, thyromegaly Chest Exam: Positive: Diminished Heart Exam: Positive: Rate Normal Telemetry: Positive: No significant arrhythmia Abdomen Exam: Positive: Normal bowel sounds, Soft; Negative: Tenderness, Hepatospenomegaly Male Exam: Positive: Normal Genital Exam Extremity Exam: Positive: Normal pulses; Negative: Clubbing, Cyanosis, Edema Skin Exam: Positive: Rash (punctate rash across torso, upper and lower extremities b/l) Neuro Exam: Positive: Normal Gait, Normal Speech, Cranial Nerves 3-12 NL, Reflexes 2+ Psych Exam: Positive: Mental status NL, Mood NL, Oriented x 3 Assessment /Plan Assessment 1. Mycoplasma pneumonia with mucositis/rash - respiratory panel positive for Mycoplasma Pneumonia. - STD panel negative, HSV pending, rubella/rubeola immune, EBV positive. - CT chest with diffuse bronchial wall thickening with scattered areas of mild tree in bud type inflammatory changes, repeat CT RML collapse. - ID/dermatology following. - blood/urine cx NG x 72 hours, sputum gram stain white cells, few gram-positive cocci, few gram-positive rods with cx pending, urine cx NG. - droplet/contact precautions. - seen by opthalmology with recommendations noted. - continue IV doxycycline, zithromax has been discontinued. 2. acute hypoxic respiratory failure - secondary to #1, resolving, now on room air, NC prn. - pulmonary following, on IV steroids. - repeat CT chest on 12/08 results noted, RML partial collapse, negative for PE, mgmt per pulmonary. - repeat CXR today with resolution of same. 3. YORDY - resolved. - IVF NS, monitor. 4. hypokalemia - supplement, repeat levels. Plan/VTE VTE Prophylaxis Ordered?: Yes VS, I&O, 24H, Fishbone Vital Signs/I&O Vital Signs Date Time Temp Pulse Resp B/P (MAP) Pulse Ox O2 Delivery O2 Flow Rate FiO2 12/11/19 08:31 98.4 74 18 149/86 (107) 93 Room Air 12/10/19 12:00 2.0 12/06/19 16:30 50 I&O- Last 24 Hours up to 6 AM 12/11/19 06:00 Intake Total 4210 ml Output Total 2050 ml Balance 2160 ml Laboratory Data 24H LABS Laboratory Tests 2 12/11/19 05:15: Nucleated Red Blood Cells % (auto) 0.0, Anion Gap 10, Glomerular Filtration Rate > 60.0, Calcium Level 8.4L, Magnesium Level 2.2 CBC/BMP Laboratory Tests 12/11/19 05:15 Microbiology Microbiology 12/06/19 Gram Stain - Final, Complete 12/06/19 Sputum Culture - Final, Complete Haemophilus Influenzae 12/06/19 Urine Culture - Final, Complete 12/06/19 Viral Culture, Received Pending 12/06/19 Herpes Simplex Virus I (PCR), Received Pending 12/06/19 Herpes Simplex Virus II (PCR), Received Pending 12/06/19 Respiratory Virus Panel (PCR) (HONEY) - Final, Complete Mycoplasma Pneumoniae 12/06/19 Blood Culture - Final, Complete NO GROWTH AFTER 5 DAYS 12/06/19 Blood Culture - Final, Complete NO GROWTH AFTER 5 DAYS KEENAN DUDLEY MD Dec 11, 2019 11:31
--- NOTE | 2019-12-11 13:31 | IPN ---
DATE: 12/11/2019 NOTE: Mr. Vogel reports that he continues to improve. He still has a cough but it is decreasing. His mouth is less sore. He is able to eat. He denies any dyspnea on exertion, shortness of breath, nausea or emesis. No other concerns expressed. OBJECTIVE: PHYSICAL EXAMINATION: GENERAL: Mr. Vogel is sitting in bed. His voice is stronger every day. No cough throughout the evaluation. VITAL SIGNS: Temperature 98.4 with a T-max of 98.7, pulse 74, respiratory rate 18, blood pressure 149/86 with a MAP of 107, SPO2 93% on room air. HEENT: Injected sclera. Nares: Mild heme. Oropharynx mucocytic lesions involving the soft palate, mouth and lips, improving. LUNGS: Symmetric excursion, good air entry, no wheeze, rhonchi or crackle on tidaled excursion. CARDIOVASCULAR: Regular rate and rhythm, normal S1-S2, no murmur, rub or gallop appreciated. ABDOMEN: Positive bowel sounds, soft, nondistended, nontender. LABORATORY DATA: I reviewed his chest x-ray as well as the report from earlier today. That x-ray showed normal appearing cardiac silhouette and pulmonary vascular shadows. Normal appearing mediastinal and hilar regions. No acute infiltrates. The previously seen partial right middle lobe collapse was not visible (should see it on the x-ray if it was). IMPRESSION: 1. Hypoxemia. Resolved. 2. Right middle lobe partial collapse, resolved. 3. Mycoplasma pneumonia associated with rash. 4. Vague history of tobacco use and vaping. RECOMMENDATIONS: 1. I discussed with Mr. Vogel that his chest x-ray was now clear and no further routine chest x-rays are indicated. 2. At this point there is nothing further we can offer to his care. We will sign off. If there is any further questions or problems, please not hesitate to contact the pulmonary service.
[2019-12-11] MEDS ORDERED: CYCLOPENTOLATE 2% OPHTH SOLN 2ML BTL OU PRN (13:45)
[2019-12-11] MEDS ORDERED: POLYVINYL ALCOHOL OPHTH SOLN 15 ML(LIQUITEARS) OU PRN (13:45)
[2019-12-11] MEDS ORDERED: LACRILUBE (AKWA TEARS) OPHTH OINT 3.5 GM OU PRN (14:00)
--- NOTE | 2019-12-11 14:12 | IPNPDOC ---
Text Note Date of Service The patient was seen on 12/11/19. NOTE SUBJECTIVE: Patient is seen at bedside. He is much more alert this morning and according to the nursing staff he has been eating more each day. He says he has intermittent pain with urination, still has pain with defecation. He is feeling much better this morning and is able to breathe better too. Rash is stable. OBJECTIVE: Vital signs: As below General: This is a young male who is in no acute distress, much more alert and sitting up in bed in the progressive care unit (PCU). HEENT: Atraumatic, normocephalic. Subconjunctival hemorrhages noted bilaterally with injection of the lower lids bilaterally. Ulcerations are noted on the patient's lips with less cracking and erosion. There continue to be ulcerations on the roof of his mouth, as well as the buccal mucosa. His tongue is pinkish white without ulcerations. Extremities: No clubbing, cyanosis or edema. Back: No costovertebral tenderness bilaterally. Skin: Diffuse 6 mm to 15 mm circular targetoid lesions with central vesiculations and ulcerations covering his face, neck, arms, legs, chest, back, abdomen, buttocks, scrotum, anal mucosa, and penis with a targetoid lesion and ulceration on the urethral meatus that has resolved; 40% improvement from admission. Negative Nikolsky's sign, no diffuse erythema or erythroderma present. No scaling or sloughing of the skin noted. Acral >> central involvement. LABORATORY DATA: as below Serology: Syphilis is nonreactive, Chlamydia trachomatis is negative. [place] screen was negative. Neisseria gonorrhoeae was negative. Trichomonas vaginalis was negative. Microbiology: Blood cultures times two from 12/06/2019 showed no growth after 72 hours. Respiratory virus panel from 12/06/2019 was positive for Mycoplasma pneumoniae. EBV positive. Viral culture is pending. HSV 1 and 2 PCR pending. Urine culture is negative. Sputum with H. influenzae. 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 influenzae from sputum. He is hospital day #6, antibiotics day #6, steroids day #6. PLAN: 1. Mycoplasma-induced rash and mucositis (classical presentation with positive Mycoplasma pneumoniae on respiratory virus panel). Most important will be to follow recommendations from ophthalmology regarding eye care. Acral > central predominance. Mucosal membranes involved more than non-mucosal sites. 40% improved compared to admission, rash is stable. -Encourage PO intake -Received 2 days of azithromycin, and is on day #6 of doxycycline. Should he decompensate, would recommend restarting azithromycin. Continue doxycycline as prescribed. -Rubella & Rubeola immune -HIV negative -HSV negative -MRSA screen negative -EBV testing positive, however his rash is not maculopapular and is more in keeping with M. pneumoniae-induced rash. Defer to ID for care regarding EBV -H. influenzae on sputum - defer to ID May continue with Solumedrol current dosing if intended for CAP. High dosing for presumed SJS or TEN not recommended as these diagnoses are not favored (please see original note). Will defer further orders to primary team. We will continue to follow patient, will also be happy to see outpatient in follow up 2 weeks after discharge VS,Kelvin, I+O VS, Kelvin, I+O Laboratory Tests 12/11/19 05:15 Vital Signs Date Time Temp Pulse Resp B/P (MAP) Pulse Ox O2 Delivery O2 Flow Rate FiO2 12/11/19 12:00 97.3 68 18 144/84 (104) 94 Room Air 12/10/19 12:00 2.0 12/06/19 16:30 50 I&O- Last 24 Hours up to 6 AM 12/11/19 06:00 Intake Total 4210 ml Output Total 2050 ml Balance 2160 ml ÓSCAR FOOTE MD Dec 11, 2019 14:12
[2019-12-11] MEDS: DOXYCYCLINE HYCLATE 100 MG TAB PO SCH (21:00)
[2019-12-11] MEDS: RAMELTEON 8 MG TAB (ROZEREM) PO SCH (21:00)
[2019-12-11] MEDS: LACRILUBE (AKWA TEARS) OPHTH OINT 3.5 GM OU SCH (21:01)
--- NOTE | 2019-12-11 21:58 | IPN ---
DATE: 12/11/2019 Liam seems to be doing better. He has been off oxygen for the past 48 hours. He does not have a cough. He just has lots of secretions from his mouth sores, cracked lips. His rash persists. Although he does not have any lesions, he still has significant conjunctival erythema and swelling. He has been afebrile since yesterday. No nausea, vomiting or diarrhea. He is eating well. He is still on Solu-Medrol 60 mg IV every 24 hours. Chest x-ray done on 12/11/2019 shows no active disease seen radiographically. CT angiogram done on 12/08/2019 showed scattered mild ground-glass opacities in lower lobes bilaterally with some tree-in-bud changes. IMPRESSION: Mycoplasma pneumoniae, improving, the patient is off oxygen with secondary rash and mucositis; according to pulmonary, classic presentation for Mycoplasma. Patient on IV doxycycline, doing much better. Off oxygen. He will be switched to oral doxycycline. Mucositis involving the penile area, eyes and mouth still continues to be the problem. Conservative management. Sputum culture also had few Haemophilus influenza, which should be covered by doxycycline, so I would not change antibiotics at this point. LABS: Herpes PCR was negative on blood on 12/07/2019, HIV was negative, rubella immune, rubeola immune, methicillin-resistant Staphylococcus aureus (MRSA) PCR was negative. PLAN: Discontinue IV doxycycline, switch to oral doxycycline 100 mg twice a day for another 7 days. Continue with conservative management for eyes and skin per dermatology and opthalmology.
[2019-12-12] VITALS: BP 138/80
[2019-12-12] MEDS: NS 1,000 ML IV SCH (01:15)
[2019-12-12 04:00] VITALS: BP 142/86
[2019-12-12] MEDS: KETOROLAC 30 MG/ML VIAL (J1885) IV PRN (04:07)
[2019-12-12] MEDS: ACETAMINOPHEN TAB 650MG DOSE (2X325MG) PO PRN (04:08)
[2019-12-12 06:52] LABS: HEMATOCRIT 35.9 % (42.0-52.0); MEAN CORPUSCULAR HEMOGLOBIN 31.5 pg (27.0-33.0); MEAN CORPUSCULAR HGB CONC 36.2 g/dl (32.0-36.5); MEAN CORPUSCULAR VOLUME 86.9 fl (80.0-96.0); PLATELET COUNT, AUTOMATED 452 10^3/uL (150-450); RED BLOOD COUNT 4.13 10^6/uL (4.30-6.10); WHITE BLOOD COUNT 11.3 10^3/uL (4.0-10.0)
[2019-12-12 07:19] LABS: BLOOD UREA NITROGEN 14 MG/DL (7-18); CALCIUM LEVEL 8.5 MG/DL (8.5-10.1); CARBON DIOXIDE LEVEL 23 MEQ/L (21-32); CHLORIDE LEVEL 106 MEQ/L (98-107); CREATININE FOR GFR 0.87 MG/DL (0.70-1.30); GLOMERULAR FILTRATION RATE > 60.0 (>60); GLUCOSE, FASTING 115 MG/DL (70-100); POTASSIUM SERUM 3.5 MEQ/L (3.5-5.1); SODIUM LEVEL 137 MEQ/L (136-145)
[2019-12-12 08:00] VITALS: BP 117/72
[2019-12-12] MEDS: DOXYCYCLINE HYCLATE 100 MG TAB PO SCH ×2 (08:46→20:01)
[2019-12-12] MEDS: methylPREDNISolone INJ 125 MG/2 ML VIAL (J2930) IV SCH (08:46)
[2019-12-12] MEDS: POLYVINYL ALCOHOL OPHTH SOLN 15 ML(LIQUITEARS) OU SCH ×4 (08:47→20:02)
[2019-12-12] MEDS: prednisoLONE ACET 1% OPHTH SUSP 5ML OU SCH ×2 (08:47→20:03)
--- NOTE | 2019-12-12 11:55 | IPN ---
DATE: 12/12/2019 OPTHALMOLOGY FOLLOWUP NOTE: The patient was seen and examined at the bedside. The patient is still on contact and droplet precautions. The patient is apparently visiting with his mom and grandmother who are in the room. The patient states that he is feeling much more comfortable today after starting the drops and finds that the ointment is moist relieving for him. He notes that his vision is still somewhat blurry in both eyes. He states that he may be discharged in the middle of the week or possibly later this week after he saw his primary care team. The patient's uncorrected dilated and cycloplegic vision are approximately 20/40 bilaterally. Intraocular pressure is within normal limits by finger tension both eyes (OU). Extraocular muscles are full to count fingers OU. The pupils were pharmacologically dilated. They are about 8 mm. Anterior segment exam with indirect illumination. Lids, lashes and adnexa show ulcerated, crusting blepharitis. Conjunctiva OU: The conjunctiva and sclera show 4+ severe hemorrhagic conjunctivitis. There is no bullous conjunctivitis today. There are no membranes or pseudomembrane formation. The anterior chamber is deep and quiet OU with lenses clear. Dilated fundus examination after placement of phenylephrine 2.5% and 0.5% tropicamide is still very limited given the mild discomfort on examination, but the posterior pole and optic nerve were able to be somewhat visualized. The optic nerve is 0.3 sharp, pink and flat without optic nerve edema. The vessels are within normal limits and the periphery appears to be within normal limits. The macula appears to be flat OU. Again, this is a somewhat limited examination given the patient's discomfort. ASSESSMENT AND PLAN: 1. Bilateral hemorrhagic conjunctivitis status post mycoplasma pneumoniae. 2. Blepharitis secondary to secondary to bilateral hemorrhagic conjunctivitis status post mycoplasma pneumoniae. The patient appears to be improving. His comfort is much better compared to last examination 3 days ago, and I was able to perform more parts of the exam. There is still a somewhat limited dilated fundus examination given the patient's discomfort, but I was able to assess further than the last examination. I will decrease his Pred Forte to twice a day OU. He can continue with Artificial Tears four times a day and then as needed. He can continue with ointment nightly and then as needed. I will decrease the cyclopentolate to twice a day and then as needed for pain. He can stop the ofloxacin drops, and will followup in 3 days either as an inpatient or as an outpatient if the patient is discharged. Please call if there are any changes in the patient's status.
[2019-12-12 12:00] VITALS: BP 126/81
[2019-12-12] MEDS: BENZOCAINE 10% 9GM TUBE (ANBESOL) TOP SCH ×2 (15:08→20:02)
[2019-12-12 16:00] VITALS: BP 140/75
--- NOTE | 2019-12-12 18:18 | IPNPDOC ---
Date Seen The patient was seen on 12/12/19. Progress Note SUBJECTIVE: Patient reports continue feeling better and requests to go home. States that he has pain mostly in his oral mucosa of his mouth but otherwise skin lesions are improving. Afebrile overnight. WBC 11.3. OBJECTIVE PHYSICAL EXAMINATION: VITAL SIGNS: Please see below. General: Alert Eyes: Injected sclera, EOMI HENT: Diffuse blisters on lips and oral mucosa, tender with dry blood Cardiovascular: Normal rate, normal rhythm. Pulmonary: Clear to auscultation b/l, no wheezing GI: Soft, nontender, nondistended Skin: Neuro: CN grossly intact. No focal deficits. Strengths equal b/l. Psych: oriented x 3 LABORATORY DATA, IMAGING STUDIES, MICROBIOLOGY: Please see below. ASSESSMENT AND PLAN: 1. Mycoplasma PNA with mucositis and diffuse rash - Improving. On doxycycline, c/w PO doxycycline through 12/18. - STD panel negative, EBV+, Rubella/Rubeola immune, HSV negative. - ID/Dermatology following. Decresae cyclopentolate to BID, d/c ofloxacin drops. f/u with Optho on , inpatient or outpatient. - Blood cultures NTD. f/u Derm 2 weeks post discharge. - Complete course of IV Solumedrol, complete tomorrow. 2. Acute hypoxic respiratory failure - partial RML collapsed which had resolved. - No saturating well on RA. - Pulmonary was previously following now had signed off. 3. YORDY - resolved. DISPOSITION: Home likely tomorrow. VS, I&O, 24H, Fishbone Vital Signs/I&O Vital Signs Date Time Temp Pulse Resp B/P (MAP) Pulse Ox O2 Delivery O2 Flow Rate FiO2 12/12/19 16:00 98.5 78 17 140/75 (96) 93 Room Air 12/10/19 12:00 2.0 12/06/19 16:30 50 I&O- Last 24 Hours up to 6 AM 12/12/19 06:00 Intake Total 3460 ml Output Total 3525 ml Balance -65 ml Laboratory Data 24H LABS Laboratory Tests 2 12/12/19 06:30: Nucleated Red Blood Cells % (auto) 0.0, Anion Gap 8, Glomerular Filtration Rate > 60.0, Calcium Level 8.5 CBC/BMP Laboratory Tests 12/12/19 06:30 Microbiology Microbiology 12/06/19 Gram Stain - Final, Complete 12/06/19 Sputum Culture - Final, Complete Haemophilus Influenzae 12/06/19 Urine Culture - Final, Complete 12/06/19 Viral Culture, Received Pending 12/06/19 Herpes Simplex Virus I (PCR), Received Pending 12/06/19 Herpes Simplex Virus II (PCR), Received Pending 12/06/19 Respiratory Virus Panel (PCR) (HONEY) - Final, Complete Mycoplasma Pneumoniae 12/06/19 Blood Culture - Final, Complete NO GROWTH AFTER 5 DAYS 12/06/19 Blood Culture - Final, Complete NO GROWTH AFTER 5 DAYS MACRINA SHANNON MD Dec 12, 2019 18:17
[2019-12-12] MEDS: RAMELTEON 8 MG TAB (ROZEREM) PO SCH (20:01)
[2019-12-12] MEDS: LACRILUBE (AKWA TEARS) OPHTH OINT 3.5 GM OU SCH (20:02)
[2019-12-13 04:00] VITALS: BP 139/76
[2019-12-13 08:00] VITALS: BP 142/76
[2019-12-13] MEDS ORDERED: [UNRECOGNIZED DRUG - CODE] OU (08:15)
[2019-12-13] MEDS ORDERED: DOXY100T PO (08:15)
[2019-12-13] MEDS ORDERED: AKWA1OIN OU (08:15)
[2019-12-13] MEDS ORDERED: PREDOPD OU (08:15)
[2019-12-13] MEDS ORDERED: Artificial Tears Op Drops OU (08:15)
--- NOTE | 2019-12-13 09:16 | IPNPDOC ---
Text Note Date of Service The patient was seen on 12/12/19. NOTE SUBJECTIVE: Patient is seen at bedside. He is much more alert this morning and according to the nursing staff he has been eating more each day. He says he has intermittent pain with urination, still has pain with defecation. He is feeling much better this morning and is able to breathe better too. Rash is stable. Doing recommendations from ophthalmology. OBJECTIVE: Vital signs: As below General: This is a young male who is in no acute distress, much more alert and sitting up in bed in the progressive care unit (PCU). HEENT: Atraumatic, normocephalic. Subconjunctival hemorrhages noted bilaterally with injection of the lower lids bilaterally. Ulcerations are noted on the patient's lips with less cracking and erosion. There continue to be ulcerations on the roof of his mouth, as well as the buccal mucosa. His tongue is pinkish white without ulcerations but overall his oral mucosa has improved. Extremities: No clubbing, cyanosis or edema. Back: No costovertebral tenderness bilaterally. Skin: Diffuse 6 mm to 15 mm circular targetoid lesions with central vesiculations and ulcerations covering his face, neck, arms, legs, chest, back, abdomen, buttocks, scrotum, anal mucosa, and penis with a targetoid lesion and ulceration on the urethral meatus that has resolved; 60% improvement from admission. Negative Nikolsky's sign, no diffuse erythema or erythroderma present. No scaling or sloughing of the skin noted. Acral >> central involvement. LABORATORY DATA: as below Serology: Syphilis is nonreactive, Chlamydia trachomatis is negative. [place] screen was negative. Neisseria gonorrhoeae was negative. Trichomonas vaginalis was negative. Microbiology: Blood cultures times two from 12/06/2019 showed no growth after 72 hours. Respiratory virus panel from 12/06/2019 was positive for Mycoplasma pneumoniae. EBV positive. Viral culture is pending. HSV negative. Urine culture is negative. Sputum with H. influenzae. 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 influenzae from sputum. He is hospital day #7, antibiotics day #7, steroids day #7. PLAN: 1. Mycoplasma-induced rash and mucositis (classical presentation with positive Mycoplasma pneumoniae on respiratory virus panel). Most important will be to follow recommendations from ophthalmology regarding eye care. Acral > central predominance. Mucosal membranes involved more than non-mucosal sites. 60% improved compared to admission, rash is improved and crusting over. -Encourage PO intake -Received 2 days of azithromycin, and is on day #7 of doxycycline. Should he decompensate, would recommend restarting azithromycin. Continue doxycycline as prescribed and recommended by ID. -Rubella & Rubeola immune -HIV negative -HSV negative -MRSA screen negative -EBV testing positive, however his rash is not maculopapular and is more in keeping with M. pneumoniae-induced rash. Defer to ID for care regarding EBV -H. influenzae on sputum - defer to ID Derm consultation sign off. Please call us if worsening [phone]. I will also be happy to see outpatient in follow up 2 weeks after discharge. VS,Fishbone, I+O VS, Fishbone, I+O Vital Signs Date Time Temp Pulse Resp B/P (MAP) Pulse Ox O2 Delivery O2 Flow Rate FiO2 12/13/19 08:00 97.3 67 18 142/76 (98) 91 Room Air 12/10/19 12:00 2.0 I&O- Last 24 Hours up to 6 AM 12/13/19 06:00 Intake Total 1136 ml Output Total 1750 ml Balance -614 ml ÓSCAR FOOTE MD Dec 13, 2019 09:16
[2019-12-13] MEDS: DOXYCYCLINE HYCLATE 100 MG TAB PO SCH (09:46)
[2019-12-13] MEDS: POLYVINYL ALCOHOL OPHTH SOLN 15 ML(LIQUITEARS) OU SCH (09:46)
[2019-12-13] MEDS: methylPREDNISolone INJ 125 MG/2 ML VIAL (J2930) IV SCH (09:46)
[2019-12-13] MEDS: prednisoLONE ACET 1% OPHTH SUSP 5ML OU SCH (09:46)
[2019-12-13] MEDS: BENZOCAINE 10% 9GM TUBE (ANBESOL) TOP SCH (09:47)
[2019-12-13 12:00] VITALS: BP 144/68
--- NOTE | 2019-12-13 17:14 | DS.PDOC ---
Discharge Summary General Date of Admission Dec 06, 2019 at 15:04 Date of Discharge 12/13/18 Discharge Summary PROCEDURES PERFORMED DURING STAY: [None]. ADMITTING DIAGNOSES: 1. Mycoplasma Pneumonia with mucositis 2. YORDY 3. Hypokalemia DISCHARGE DIAGNOSES: 1. Mycoplasma Pneumonia with mucositis 2. YORDY 3. Hypokalemia 4. RML partial collapse with hypoxia COMPLICATIONS/CHIEF COMPLAINT: Viral Vesicles Of Mouth. HISTORY OF PRESENT ILLNESS: "19-year-old male no significant PMHx admitted presents with mouth soars, rash, productive cough. States symptoms started 1 week ago with productive cough with yellow sputum, associated with subjective fever and chills and shortness of breath. Denies chest pain/pressure, n/v/d, abdominal pain, urinary complaints, joint pain, headaches, vision changes. Noted increasing pain on swallowing Wednesday followed by blisters forming in the back of his throat and on his lips. Came to the ED on Wednesday evening for evaluation. Was found to be strep positive and tx with a dose of Amoxicillin and discharged home. Patient states he did not take anymore of the antibiotic as it was increasingly difficult for him to swallow. Symptoms worsened today, noted conjunctival hemorrhages with worsening of lip/throat blisters. Also with pustular rash forming across his torso and extremities. Presents to the ED with BP 162/85, P93, RR 19, saturating 93% on RA, Tm 102.3. Labs with wbc 14.3, ESR 58, CRP 24, LA 2.2, UA and urine toxicology negative, K 3.3, Na 132, SCr 1.5. CT chest with bronchial wall thickening diffusely, scattered areas of mild tree in bud type nodular lung changes. CT neck negative. Respiratory panel positive for Mycoplasma Pneumonia. Started on IV vanco/zosyn in ED, pancultures, IV steroids." HOSPITAL COURSE: Patient was treated for Mycoplasma Pneumonia with steroids and Abx with continued improvement in symptoms and rash appearance. He was also noted to be hypoxic during course of admission with RML partial collapsed and was monitored and treated by pulmonology and on room air without any respiratory complaints. He was evaluated and followed by ID, Opthalmology, dermatology in addition to pulmonology. Symptoms continued to improve and patient is anxious to be discharged and requests to go home. He had completed 5 days of solumedrol and had stopped, low suspicion for SJS for TEN. Given improvement in symptoms, patient is to be discharged home to continue follow up with ID, Opthalmology and dermatology as outpatient. To be seen by opthalmology tomorrow. Patient is discharged with eyedrops as well as course of Doxycyline to complete as outpatient. DISCHARGE MEDICATIONS: Please see below. ALLERGIES: Please see below. PHYSICAL EXAMINATION ON DISCHARGE: VITAL SIGNS: Please see below. VITAL SIGNS: Please see below. General: Alert Eyes: Injected sclera, EOMI HENT: Diffuse blisters on lips and oral mucosa, tender with dry blood Cardiovascular: Normal rate, normal rhythm. Pulmonary: Clear to auscultation b/l, no wheezing GI: Soft, nontender, nondistended Skin: Neuro: CN grossly intact. No focal deficits. Strengths equal b/l. Psych: oriented x 3 LABORATORY DATA: Please see below. IMAGING: Neck CT-Unremarkable CT neck with contrast. CXR- No acute disease. Chest CT-Bronchial wall thickening diffusely. Scattered areas of mild tree-in-bud type nodular lung changes, consistent with early inflammatory disease. There is no evidence of ground-glass opacity or areas of consolidation to suggest the usually described features of vaping associated lung injury. Findings may reflect bronchitis. CT angio- No CT evidence of pulmonary embolus. ACTIVITY: [As tolerated]. DIET: Regular DISCHARGE PLAN: Complete course of doxycycline f/u Optho, derm, ID and PCP c/w eye drops as prescribed DISPOSITION: 01 Home, Self-Care. DISCHARGE INSTRUCTIONS: Complete course of doxycycline f/u Optho, derm, ID and PCP c/w eye drops as prescribed ITEMS TO FOLLOWUP ON ON OUTPATIENT: None DISCHARGE CONDITION: [Stable]. TIME SPENT ON DISCHARGE: 40 minutes. Vital Signs/I&Os Vital Signs Date Time Temp Pulse Resp B/P (MAP) Pulse Ox O2 Delivery O2 Flow Rate FiO2 12/13/19 12:00 97.8 83 17 144/68 (93) 91 Room Air 12/10/19 12:00 2.0 I&O- Last 24 Hours up to 6 AM 12/13/19 06:00 Intake Total 1136 ml Output Total 1750 ml Balance -614 ml Microbiology Microbiology 12/06/19 Gram Stain - Final, Complete 12/06/19 Sputum Culture - Final, Complete Haemophilus Influenzae 12/06/19 Urine Culture - Final, Complete 12/06/19 Viral Culture, Resulted Pending 12/06/19 Herpes Simplex Virus I (PCR) - Final, Resulted 12/06/19 Herpes Simplex Virus II (PCR) - Final, Resulted 12/06/19 Respiratory Virus Panel (PCR) (HONEY) - Final, Complete Mycoplasma Pneumoniae 12/06/19 Blood Culture - Final, Complete NO GROWTH AFTER 5 DAYS 12/06/19 Blood Culture - Final, Complete NO GROWTH AFTER 5 DAYS Discharge Medications Scheduled Cyclopentolate HCl (Cyclopentolate HCl) 2% Drops, 1 DROP OU BIDP Doxycycline Hyclate (Doxycycline Hyclate) 100 Mg Tablet, 100 MG PO BID Ibuprofen (Ibuprofen) 600 Mg Tablet, 600 MG PO TID for pain, (Reported) with food Mineral Oil/Petrolatum,White (Artificial Tears Eye Ointment) 3.5 Gm Oint...g., 1 DOSE OU QHS Prednisolone Acetate (Prednisolone Acetate 1% Opth Susp) 5 Ml Drops.susp, 1 DROP OU BID [Artificial Tears Op Drops] 300 DROP/15 ML SOLN, 2 DROP OU QID Scheduled PRN Magic Mouthwash (First-Mouthwash Blm) 1 Ea Susp, 10 ML SSP QID PRN for MU COSITIS, (Reported) (Diphenhydramine/maalox/lidocaine 1:1:1) May compound if kit unavailable/not covered by insurance Allergies Coded Allergies: No Known Allergies (Unverified , 12/04/19) MACRINA SHANNON MD Dec 13, 2019 17:13
== END 2019-12-13 13:15 | disposition home or self-care (01) | DRG 193 ==
LOC: M ED 09:46 → M ED INP 15:04 → ENRESERV 15:30 → M PCU 16:42
PROVIDERS: ADMIT Internal Medicine; ATTEND Student in an Organized Health Care Education/Training Program
DX: J15.7 Pneumonia due to Mycoplasma pneumoniae (principal); J96.01 Acute respiratory failure with hypoxia; N17.9 Acute kidney failure, unspecified; J98.19 Other pulmonary collapse; B37.0 Candidal stomatitis; E87.6 Hypokalemia; Z79.899 Other long term (current) drug therapy; D72.829 Elevated white blood cell count, unspecified; K12.39 Other oral mucositis (ulcerative); R21 Rash and other nonspecific skin eruption; B30.3 Acute epidemic hemorrhagic conjunctivitis (enteroviral); H01.006 Unspecified blepharitis left eye, unspecified eyelid; H01.003 Unspecified blepharitis right eye, unspecified eyelid

== ENCOUNTER → 2020-08-09 | Outpatient (CLI) | payer OTHER ==
[~2020-08-09] MED LIST changes: +AKWA1OIN OU; +Artificial Tears Op Drops OU; +DOXY100T PO; +PREDOPD OU; +[UNRECOGNIZED DRUG - CODE] OU
--- NOTE | 2020-08-29 08:23 | REP ---
CHEST CT WITHOUT CONTRAST: CLINICAL: Follow up abnormal lung findings. TECHNIQUE: Axial noncontrast images from the thoracic inlet to the upper abdomen with coronal and sagittal reformations. COMPARISON: 12/08/19, 12/06/19 FINDINGS: The bilateral lung patel are well-aerated and clear. Previously noted right middle lobe collapse has resolved and the previously noted subtle ground glass opacities and tree-in-bud infiltrates have resolved as well. No acute consolidation, effusion or pneumothorax. No suspicious nodule or mass lesion. The tracheobronchial tree is patent. There is no evidence for adenopathy. Further evaluation of the mediastinum demonstrates normal thoracic aorta, pulmonary vasculature and heart/pericardium. Surrounding musculoskeletal structures are intact. Limited upper abdomen demonstrate normal bilateral adrenal glands and normal gallbladder. IMPRESSION: Normal noncontrast chest CT. Previously noted right middle lobe collapse and infiltrates have all resolved. No acute mediastinal or pleuroparenchymal process appreciated. MTDD
== END ==
LOC: M RAD 07:38
PROVIDERS: ATTEND Physician Assistant
DX: R91.8 Other nonspecific abnormal finding of lung field (principal)

== ENCOUNTER → 2020-08-13 | Outpatient (CLI) | payer OTHER ==
[~2020-08-13] MED LIST changes: +METHACHOLINE KIT (J7674) INH ONE
--- NOTE | 2020-08-13 08:47 | PFTRPT ---
Visit Date: 08/13/2020 Second ID: [id number] Referring Doctor: ANDRIY Ramachandran Marcus, M Height: 71.00 Inches Weight: 215.00 Lbs BSA: 2.17 Diagnosis: R06.00 QUALITY: Study of excellent technical quality. PROCEDURE: Under protocol, methacholine was administered. At a dose of 0.25 mg or 1.375 CDUs, a 23% decline of the FEV1 was noted. PC of 0.18 is significant. Flow rates returned to better than baseline post-bronchodilator administration. IMPRESSION: Positive methacholine challenge study. MTDD
== END ==
LOC: M CARPUL 07:35
PROVIDERS: ATTEND Physician Assistant
DX: R06.00 Dyspnea, unspecified (principal)
CPT/HCPCS: 94070; J7674

== ENCOUNTER 2021-04-05 16:20 | Emergency (ER) | payer OTHER ==
[~2021-04-05] VITALS: Ht 185.4 cm; Wt 100.9 kg
[~2021-04-05 16:20] MED LIST changes: -METHACHOLINE KIT (J7674) INH ONE
[2021-04-05 17:45] LABS: AMPHETAMINES LEVEL URINE NEGATIVE (NEGATIVE); BARBITURATES URINE NEGATIVE (NEGATIVE); BENZODIAZEPINES URINE NEGATIVE (NEGATIVE); CANNABINOIDS URINE NEGATIVE (NEGATIVE); COCAINE METABOLITE URINE NEGATIVE (NEGATIVE); METHADONE URINE NEGATIVE (NEGATIVE); OPIATES URINE NEGATIVE (NEGATIVE); PHENCYCLIDINE URINE NEGATIVE (NEGATIVE)
[2021-04-05] MEDS ORDERED: OXYCODONE/APAP 5MG/325MG(BULK FOR ED) 1 TABLET PO ONE (18:30)
[2021-04-05 18:37] VITALS: BP 138/82
== END 2021-04-05 18:37 | disposition home or self-care (01) ==
LOC: M ED 16:20
DX: R41.82 Altered mental status, unspecified (principal)
CPT/HCPCS: 80307; 82077; 99283; G0480

== ENCOUNTER → 2021-08-06 | Outpatient (REF) ==
--- NOTE | 2021-08-06 12:35 | REP ---
INDICATION: PAIN COMPARISON: None. TECHNIQUE: Four views right wrist. FINDINGS: There is no evidence of acute fracture, dislocation, or intrinsic bone disease.The joint spaces are unremarkable. IMPRESSION: Negative right wrist series. <Electronically signed by Michel Irvin > 08/06/21 [id number]
== END ==
LOC: M PLAIMG 09:58
PROVIDERS: ATTEND Internal Medicine
DX: M25.531 Pain in right wrist (principal)